=== PATIENT | male | born 1965 | race Caucasian/White ===

== ENCOUNTER 2020-01-25 18:12 | Inpatient (IN) | payer MEDICAID ==
[~2020-01-25] VITALS: Ht 182.9 cm; Wt 82.6 kg
[~2020-01-25 18:12] MED LIST: ALLO300T2 PO; BUDE0.253 INH
[2020-01-25] MEDS ORDERED: PANTOPRAZOLE 40 MG/10 ML VIAL INJ IV STA (18:25)
[2020-01-25] MEDS ORDERED: ONDANSETRON HCL 4 MG/2 ML VIAL IV ONE (18:30)
[2020-01-25] MEDS ORDERED: HYDROmorphone HCL 2 MG/ML VL IV ONE (18:30)
[2020-01-25 19:20] LABS: Basophils # (auto) 0 10 ^3/uL (0-0.2); Basophils % (auto) 0.2 % (0.0-2.0); Eosinophils # (auto) 0.1 10 ^3/uL (0-0.8); Eosinophils % (auto) 0.6 % (0.0-7.0); Hematocrit 43.4 % (41.0-53.0); Hemoglobin 15.4 g/dL (13.5-17.5); Lymphocytes # (auto) 0.6 10 ^3/uL (0.4-5.4); Lymphocytes % (auto) 4.7 % (10.0-50.0); Mean Corpuscular Hemoglobin 31.3 pg (28.0-32.0); Mean Corpuscular Hgb Conc. 35.5 g/dL (32.0-36.0); Mean Corpuscular Volume 88.3 fL (80.0-100.0); Monocytes # (auto) 0.6 10 ^3/uL (0-1.3); Monocytes % (auto) 4.9 % (0.0-12.0); Neutrophils # (auto) 10.6 10 ^3/uL (1.6-8.6); Neutrophils % (auto) 89.6 % (37.0-80.0); Nucleated Red Blood Cells % 0.1 %; Platelet Count (auto) 212 10^3/uL (140-450); Red Blood Cells 4.91 10^6/uL (4.5-5.90); Red Cell Distribution Width 13.6 % (11.8-14.3); White Blood Cell 11.9 10^3/uL (4.4-10.8)
[2020-01-25 19:33] LABS: INR 1.03 (0.9-1.15); Partial Thromboplastin Time 25.9 sec (23.0-31.2)
[2020-01-25 19:39] LABS: Potassium 3.2 mmol/L (3.5-5.1)
[2020-01-25 19:44] LABS: Albumin 4.6 g/dL (3.4-5.0); BUN/Creatinine Ratio 12.4; Bilirubin, Total 0.9 mg/dL (0.2-1.0); Calcium 9.6 mg/dL (8.5-10.1); Total Protein 8.3 g/dL (6.4-8.2)
[2020-01-25] MEDS ORDERED: IOHEXOL 300 MG/ML 100ML BOTTLE IJ ONE (19:48)
[2020-01-25] MEDS ORDERED: metroNIDAZOLE 500MG/100ML 100 ML IV ONE (20:45)
[2020-01-25 22:25] LABS: Urine Bacteria NONE SEEN /hpf (None Seen); Urine Blood 1+ /uL (Negative); Urine WBC 2 /hpf (0 - 3)
[2020-01-25 22:33] LABS: Urine Specific Gravity > 1.050 (1.001-1.035)
[2020-01-25] MEDS ORDERED: SODIUM CHLORIDE 0.9% 1,000 ML IV SCH (23:30)
[2020-01-26 00:04] LABS: Basophils # (auto) 0.1 10 ^3/uL (0-0.2); Basophils % (auto) 0.5 % (0.0-2.0); Eosinophils # (auto) 0.1 10 ^3/uL (0-0.8); Eosinophils % (auto) 0.6 % (0.0-7.0); Hematocrit 42.3 % (41.0-53.0); Lymphocytes # (auto) 1.1 10 ^3/uL (0.4-5.4); Lymphocytes % (auto) 9.5 % (10.0-50.0); Mean Corpuscular Hemoglobin 31.3 pg (28.0-32.0); Mean Corpuscular Hgb Conc. 35.4 g/dL (32.0-36.0); Mean Corpuscular Volume 88.7 fL (80.0-100.0); Monocytes # (auto) 0.9 10 ^3/uL (0-1.3); Monocytes % (auto) 7.6 % (0.0-12.0); Neutrophils # (auto) 9.8 10 ^3/uL (1.6-8.6); Neutrophils % (auto) 81.8 % (37.0-80.0); Nucleated Red Blood Cells % 0.1 %; Platelet Count (auto) 205 10^3/uL (140-450); Red Blood Cells 4.77 10^6/uL (4.5-5.90); Red Cell Distribution Width 13.6 % (11.8-14.3)
[2020-01-26] MEDS: ONDANSETRON HCL 4 MG/2 ML VIAL IV PRN ×4 (00:05→15:46)
[2020-01-26] MEDS: MORPHINE SULF INJ 2 MG/ML SYRINGE 1ML IV PRN ×5 (00:06→22:07)
[2020-01-26 00:21] LABS: Albumin 4.4 g/dL (3.4-5.0); BUN/Creatinine Ratio 11.9; Calcium 9.5 mg/dL (8.5-10.1); Magnesium 2.3 mg/dL (1.6-2.6); Potassium 3.2 mmol/L (3.5-5.1)
[2020-01-26 00:24] LABS: Bilirubin, Total 0.8 mg/dL (0.2-1.0); Phosphorus 1.4 mg/dL (2.5-4.90); Total Protein 7.9 g/dL (6.4-8.2)
--- NOTE | 2020-01-26 00:35 | NUR ---
ADMISSION NOTE PT ADMITTED TO ROOM 297-A IN STABLE COND. PT ORIENTED TO ROOM AND PROCEDURES AND POC DISCUSSED WITH PT. PT VERBALIZES UNDERSTANDING. BED IS LOW, WHEELS ARE LOCKED, AND CALL LIGHT IS WITH IN REACH.
[2020-01-26 00:45] VITALS: BP 147/80
--- NOTE | 2020-01-26 00:45 | NUR ---
PT REPORTS THAT HE HAS BEEN OUT OF HIS HOME MEDS FOR ABOUT 2WEEKS.
[2020-01-26 05:00] VITALS: BP 118/82
[2020-01-26] MEDS: metroNIDAZOLE 500MG/100ML 100 ML IV SCH ×3 (05:35→22:06)
--- NOTE | 2020-01-26 08:00 | NUR ---
OPENING SHIFT NOTE: PATIENT RESTING IN BED, AWAKE A/OX4. RESPIRATIONS EVEN AND UNLABORED. UPDATED ON PLAN OF CARE. CALL LIGHT WITHIN REACH, WILL CONTINUE TO MONITOR.
[2020-01-26 09:00] VITALS: BP 138/74
[2020-01-26] MEDS ORDERED: POTASSIUM CHLORIDE 40 MEQ, LIDOCAINE 1% (LOCAL ANESTH.) 4 ML in SODIUM CHL 0.9% 100 ML IV ONE (09:00)
--- NOTE | 2020-01-26 09:45 | NUR ---
MD MUHAMMAD ROUNDING.
--- NOTE | 2020-01-26 09:52 | NUR ---
STOOL SENT TO LAB: DIAMANTE RED LIQUID NOTED.
[2020-01-26] MEDS: MAGNESIUM SULFATE 1GM/100ML 100 ML IV SCH ×2 (09:54→15:45)
[2020-01-26] MEDS ORDERED: ENOXAPARIN SOD 40 MG/0.4 ML SYRINGE SC SCH (10:00)
[2020-01-26] MEDS: levoFLOXacin 500MG 100 ML IV SCH (11:20)
[2020-01-26 13:00] VITALS: BP 122/91
[2020-01-26] MEDS ORDERED: MAGNESIUM SULFATE 1GM/100ML 100 ML IV SCH (14:00)
--- NOTE | 2020-01-26 16:39 | NUR ---
MD HENSLEY ROUNDING.
[2020-01-26] MEDS: D5W/LACTATED RINGERS 1,000 ML IV SCH ×2 (16:48→18:49)
[2020-01-26 17:00] VITALS: BP 132/75
[2020-01-26 22:20] VITALS: BP 123/77
[2020-01-27] MEDS: ACETAMINOPHEN 325 MG TAB PO PRN ×2 (03:25→14:04)
[2020-01-27 05:02] VITALS: BP 145/87
[2020-01-27] MEDS: metroNIDAZOLE 500MG/100ML 100 ML IV SCH ×2 (06:03→14:42)
[2020-01-27] MEDS: D5W/LACTATED RINGERS 1,000 ML IV SCH ×2 (06:03→09:30)
[2020-01-27] MEDS: MORPHINE SULF INJ 2 MG/ML SYRINGE 1ML IV PRN ×2 (06:04→10:23)
[2020-01-27 06:32] LABS: Basophils # (auto) 0 10 ^3/uL (0-0.2); Basophils % (auto) 0.5 % (0.0-2.0); Eosinophils # (auto) 0.5 10 ^3/uL (0-0.8); Eosinophils % (auto) 5.3 % (0.0-7.0); Hematocrit 37.6 % (41.0-53.0); Hemoglobin 13.3 g/dL (13.5-17.5); Lymphocytes # (auto) 1.1 10 ^3/uL (0.4-5.4); Lymphocytes % (auto) 12.5 % (10.0-50.0); Mean Corpuscular Hemoglobin 31.4 pg (28.0-32.0); Mean Corpuscular Hgb Conc. 35.3 g/dL (32.0-36.0); Monocytes # (auto) 0.9 10 ^3/uL (0-1.3); Monocytes % (auto) 9.6 % (0.0-12.0); Neutrophils # (auto) 6.6 10 ^3/uL (1.6-8.6); Neutrophils % (auto) 72.1 % (37.0-80.0); Nucleated Red Blood Cells % 0.1 %; Platelet Count (auto) 162 10^3/uL (140-450); Red Blood Cells 4.23 10^6/uL (4.5-5.90); Red Cell Distribution Width 13.6 % (11.8-14.3); White Blood Cell 9.1 10^3/uL (4.4-10.8)
[2020-01-27 06:55] LABS: Calcium 8.6 mg/dL (8.5-10.1); Potassium 3.7 mmol/L (3.5-5.1)
[2020-01-27 06:58] LABS: Albumin 3.4 g/dL (3.4-5.0)
[2020-01-27 07:03] LABS: Bilirubin, Total 0.4 mg/dL (0.2-1.0); Total Protein 6.4 g/dL (6.4-8.2)
--- NOTE | 2020-01-27 07:39 | NUR ---
OPENING SHIFT NOTE: PATIENT RESTING IN BED, AWAKE A/OX4. RESPIRATIONS EVEN AND UNLABORED. UPDATED ON PLAN OF CARE. CALL LIGHT WITHIN REACH, WILL CONTINUE TO MONITOR.
[2020-01-27 08:20] LABS: INR 1.05 (0.9-1.15); Partial Thromboplastin Time 27.1 sec (23.0-31.2)
[2020-01-27 09:00] VITALS: BP 109/70
[2020-01-27] MEDS: levoFLOXacin 500MG 100 ML IV SCH (09:30)
[2020-01-27 13:00] VITALS: BP 104/71
--- NOTE | 2020-01-27 15:30 | NUR ---
MD HENSLEY ROUNDING.
[2020-01-27] MEDS ORDERED: LEVO-28 PO (15:32)
[2020-01-27] MEDS ORDERED: METR500T PO (15:32)
[2020-01-27] MEDS ORDERED: IBUP600T27 PO (15:32)
--- NOTE | 2020-01-27 16:59 | NUR ---
DISCHARGE: Discharge instructions given as ordered. Encourage to follow up with PMD as instructed. All questions and concerns addressed. Patient verbalized understanding. IV removed with catheter intact, dressing applied. Patient taken to private auto with all personal belongings, accompanied by staff and family member. No distress noted at time of departure.
== END 2020-01-27 17:00 | disposition home or self-care (01) | DRG 244 ==
LOC: EDUNIT# 18:12 → EDBD 18:12 → ER 18:12 → OVERFLOW 18:13 → WEST WING 23:54
PROVIDERS: ADMIT Internal Medicine; ATTEND Internal Medicine
DX: K57.32 Diverticulitis of large intestine without perforation or abscess without bleeding (principal); J45.909 Unspecified asthma, uncomplicated; K59.00 Constipation, unspecified; K62.5 Hemorrhage of anus and rectum; M10.9 Gout, unspecified; Z79.899 Other long term (current) drug therapy
CPT/HCPCS: 36415; 74177; 80053; 81001; 82150; 82270; 83690; 83735; 84100; 85025; 85610; 85730; 86850; 86900; 86901; 96365; 96366; 96375; C9113; G0378; J1956; J2001; J2405; J3490

== ENCOUNTER 2021-08-29 11:25 | Inpatient (IN) | payer MEDICAID ==
[~2021-08-29] VITALS: Ht 188 cm; Wt 76.0 kg
[~2021-08-29 11:25] MED LIST changes: +IBUP600T27 PO; +LEVO-28 PO; +METR500T PO
[2021-08-29] MEDS ORDERED: ONDANSETRON HCL 4 MG/2 ML VIAL IV ONE (11:45)
[2021-08-29] MEDS ORDERED: SODIUM CHLORIDE 0.9% 1,000 ML IVB ONE (11:45)
[2021-08-29] MEDS ORDERED: MORPHINE SULFATE 4 MG/ML SYR/VIAL IV ONE (11:45)
[2021-08-29] MEDS ORDERED: PANTOPRAZOLE 40 MG/10 ML VIAL INJ IV ONE (11:45)
[2021-08-29 12:49] LABS: Basophils # (auto) 0 10 ^3/uL (0-0.2); Basophils % (auto) 0.3 % (0.0-2.0); Eosinophils # (auto) 0.1 10 ^3/uL (0-0.8); Eosinophils % (auto) 0.6 % (0.0-7.0); Hematocrit 46.3 % (41.0-53.0); Hemoglobin 15.8 g/dL (13.5-17.5); Lymphocytes # (auto) 0.4 10 ^3/uL (0.4-5.4); Lymphocytes % (auto) 4.2 % (10.0-50.0); Mean Corpuscular Hemoglobin 30.5 pg (28.0-32.0); Mean Corpuscular Hgb Conc. 34.1 g/dL (32.0-36.0); Mean Corpuscular Volume 89.4 fL (80.0-100.0); Monocytes # (auto) 0.8 10 ^3/uL (0-1.3); Monocytes % (auto) 7.8 % (0.0-12.0); Neutrophils # (auto) 8.5 10 ^3/uL (1.6-8.6); Neutrophils % (auto) 87.1 % (37.0-80.0); Nucleated Red Blood Cells % 0.1 %; Red Blood Cells 5.18 10^6/uL (4.5-5.90); Red Cell Distribution Width 13.9 % (11.8-14.3); White Blood Cell 9.8 10^3/uL (4.4-10.8)
[2021-08-29 12:58] LABS: Albumin 3.5 g/dL (3.4-5.0); BUN/Creatinine Ratio 25.2; Calcium 9.1 mg/dL (8.5-10.1); Potassium 3.5 mmol/L (3.5-5.1)
[2021-08-29 13:07] LABS: INR 2.2 (0.9-1.15); Partial Thromboplastin Time 28.8 sec (23.6-33.0)
[2021-08-29] MEDS ORDERED: PANTOPRAZOLE 40mg/50ML NS AE 50 ML IV ONE (13:45)
[2021-08-29] MEDS ORDERED: CEFTRIAXONE SODIUM 2 GM in D5W 5% 50 ML IV ONE (13:45)
[2021-08-29] MEDS ORDERED: PANTOPRAZOLE 80 MG in SODIUM CHL 0.9% 100 ML IV ONE (13:45)
[2021-08-29] MEDS ORDERED: metroNIDAZOLE 500MG/100ML 100 ML IV ONE (13:45)
[2021-08-29 13:55] LABS: Bilirubin, Total 4.4 mg/dL (0.2-1.0); Total Protein 6.8 g/dL (6.4-8.2)
[2021-08-29] MEDS ORDERED: GASTROGRAFIN 120 ML SOL ONE (14:25)
[2021-08-29] MEDS ORDERED: VANCOMYCIN PER PHARMACY 0 MG IV SCH (17:45)
[2021-08-29 20:02] LABS: Acetaminophen < 2.0 ug/mL (10-30); Salicylate < 1.7 mg/dL (2.8-20.0)
[2021-08-29] MEDS: VANCOMYCIN 1GM/250ML 250 ML IV SCH (20:22)
[2021-08-29] MEDS: LACTATED RINGER'S 1,000 ML IV SCH (20:23)
[2021-08-29] MEDS ORDERED: ACETYLCYSTEINE IV ONE ×2 (21:00→22:00)
[2021-08-29] MEDS ORDERED: D5W 5% IV ONE ×2 (21:00→22:00)
[2021-08-29] MEDS ORDERED: ACETYLCYSTEINE PO FOR APAP TOX 200 MG/ML ML PO ONE (21:00)
[2021-08-29] MEDS ORDERED: MEROPENEM 1GM IVPB 100 ML IV SCH (22:00)
[2021-08-29] MEDS ORDERED: MORPHINE SULFATE INJECTION 2 MG/ML SYRG IV ONE (23:30)
[2021-08-29] MEDS: ONDANSETRON HCL 4 MG/2 ML VIAL IV PRN (23:43)
[2021-08-30] VITALS (13 sets, daily range): BP systolic 105–153; BP diastolic 60–83
[2021-08-30] MEDS: PIPERACILLIN-TAZOB 3.375GM 100 ML IV SCH ×4 (00:01→18:17)
[2021-08-30] MEDS ORDERED: ACETYLCYSTEINE PO FOR APAP TOX 200 MG/ML ML PO SCH (01:00)
[2021-08-30] MEDS: D5W 5% IV SCH ×2 (02:13→18:18)
[2021-08-30] MEDS: ACETYLCYSTEINE IV SCH ×2 (02:13→18:18)
[2021-08-30] MEDS: LACTATED RINGER'S 1,000 ML IV SCH ×2 (05:00→13:45)
[2021-08-30 05:48] LABS: Basophils # (auto) 0.1 10 ^3/uL (0-0.2); Basophils % (auto) 0.8 % (0.0-2.0); Eosinophils # (auto) 0.7 10 ^3/uL (0-0.8); Eosinophils % (auto) 10.2 % (0.0-7.0); Hematocrit 38.2 % (41.0-53.0); Hemoglobin 13.5 g/dL (13.5-17.5); Lymphocytes # (auto) 0.6 10 ^3/uL (0.4-5.4); Lymphocytes % (auto) 8.9 % (10.0-50.0); Mean Corpuscular Hemoglobin 31.4 pg (28.0-32.0); Mean Corpuscular Hgb Conc. 35.4 g/dL (32.0-36.0); Mean Corpuscular Volume 88.7 fL (80.0-100.0); Monocytes # (auto) 0.9 10 ^3/uL (0-1.3); Monocytes % (auto) 12.6 % (0.0-12.0); Neutrophils # (auto) 4.9 10 ^3/uL (1.6-8.6); Neutrophils % (auto) 67.5 % (37.0-80.0); Nucleated Red Blood Cells % 0.1 %; Red Blood Cells 4.31 10^6/uL (4.5-5.90); Red Cell Distribution Width 13.6 % (11.8-14.3); White Blood Cell 7.3 10^3/uL (4.4-10.8)
[2021-08-30 05:56] LABS: INR 1.82 (0.9-1.15)
[2021-08-30 06:08] LABS: Albumin 2.7 g/dL (3.4-5.0); BUN/Creatinine Ratio 27.3; Bilirubin, Total 3.6 mg/dL (0.2-1.0); Calcium 7.8 mg/dL (8.5-10.1)
[2021-08-30 06:17] LABS: Potassium 2.9 mmol/L (3.5-5.1)
[2021-08-30 06:19] LABS: Total Protein 5.4 g/dL (6.4-8.2)
[2021-08-30] MEDS: VANCOMYCIN 1GM/250ML 250 ML IV SCH ×2 (09:18→21:02)
[2021-08-30] MEDS: POTASSIUM CHL 20MEQ/100ML 100 ML IV SCH ×3 (09:19→14:53)
[2021-08-30] MEDS: ONDANSETRON HCL 4 MG/2 ML VIAL IV PRN (10:44)
[2021-08-30 17:07] LABS: Urine Bacteria NONE SEEN /hpf (None Seen); Urine Blood Negative /uL (Negative); Urine Specific Gravity 1.012 (1.001-1.035); Urine WBC 1 /hpf (0 - 3)
[2021-08-30 17:24] LABS: Alcohol, Urine < 3.0 mg/dL (0-10); Amphetamine Screen, Urine NEGATIVE (NEGATIVE); Barbiturate Scree,Urine NEGATIVE (NEGATIVE); Benzodiazephine Screen, Urine NEGATIVE (NEGATIVE); Cannabinoid Screen, Urine POSITIVE (NEGATIVE); Cocaine Screen, Urine NEGATIVE (NEGATIVE); Opiate Scree,Urine NEGATIVE (NEGATIVE); Phencyclidine Screen, Urine NEGATIVE (NEGATIVE)
[2021-08-30] MEDS ORDERED: LIDOCAINE 1% (LOCAL ANESTH.) PF 5ml SDV ID ONE (18:00)
[2021-08-30] MEDS ORDERED: TPN PER PHARMACY 0 ML IV SCH (18:45)
[2021-08-30] MEDS: HYDROmorphone HCL 2 MG/ML VL/or syr IV PRN (19:25)
[2021-08-30] MEDS ORDERED: AMINO ACID INFUSION IN D10W 1,000 ML IV NR (20:00)
[2021-08-30] MEDS: PANTOPRAZOLE 40 MG/10 ML VIAL INJ IV SCH (23:42)
[2021-08-30] MEDS: SODIUM CHLOR 0.9% PF (SALINE LOCK) 10ML VIAL/SYR IV SCH (23:42)
[2021-08-31] VITALS: BP 106/65
[2021-08-31] MEDS ORDERED: DEXTROSE (50%) 50ML SYRG IV SCH
[2021-08-31 01:00] VITALS: BP 127/67
[2021-08-31 02:00] VITALS: BP 122/73
[2021-08-31 03:00] VITALS: BP 113/77
[2021-08-31] MEDS: LACTATED RINGER'S 1,000 ML IV SCH ×4 (03:04→20:36)
[2021-08-31] MEDS: ACCU-CHEK COMFORT CURVE STRIP VI SCH ×4 (03:05→18:00)
[2021-08-31] MEDS: PIPERACILLIN-TAZOB 3.375GM 100 ML IV SCH ×4 (03:05→18:49)
[2021-08-31] MEDS: InsuLIN REG 1unit/0.01ml Soln (100units/ml) SC SCH ×4 (06:00→18:00)
[2021-08-31 06:04] LABS: Hematocrit 37.2 % (41.0-53.0); Mean Corpuscular Hemoglobin 31.2 pg (28.0-32.0); Mean Corpuscular Volume 89.2 fL (80.0-100.0); Red Blood Cells 4.17 10^6/uL (4.5-5.90); Red Cell Distribution Width 14.1 % (11.8-14.3); White Blood Cell 5.5 10^3/uL (4.4-10.8)
[2021-08-31] MEDS: HYDROmorphone HCL 2 MG/ML VL/or syr IV PRN ×3 (06:07→19:58)
[2021-08-31 06:14] LABS: Band Neutrophils % (manual) 0; Basophils % (manual) 0 (0.0-2.0); Blast Cells 0; Metamyelocytes % 0; Myelocytes % 0; Promyelocytes % 0; Reactive Lymphocytes 0
[2021-08-31 06:22] LABS: Albumin 2.7 g/dL (3.4-5.0); Calcium 8.1 mg/dL (8.5-10.1)
[2021-08-31 06:30] LABS: BUN/Creatinine Ratio 14.9; Bilirubin, Total 2.1 mg/dL (0.2-1.0); Total Protein 5.6 g/dL (6.4-8.2)
[2021-08-31] MEDS: POTASSIUM CHL 20MEQ/100ML 100 ML IV SCH ×3 (07:15→11:15)
[2021-08-31] MEDS: VANCOMYCIN 1GM/250ML 250 ML IV SCH ×2 (07:59→20:35)
[2021-08-31 08:29] LABS: Eosinophils % (manual) 7 (0-7); Lymphocytes % (manual) 25 (10.0-50.0); Monocytes % (manual) 9 (0-12)
[2021-08-31] MEDS: SODIUM CHLOR 0.9% PF (SALINE LOCK) 10ML VIAL/SYR IV SCH ×2 (10:00→22:36)
[2021-08-31] MEDS: D5W 5% IV SCH (10:00)
[2021-08-31] MEDS: ACETYLCYSTEINE IV SCH (10:00)
[2021-08-31] MEDS: PANTOPRAZOLE 40 MG/10 ML VIAL INJ IV SCH ×2 (10:40→22:36)
[2021-08-31] MEDS: ONDANSETRON HCL 4 MG/2 ML VIAL IV PRN (10:50)
[2021-08-31] MEDS ORDERED: POTASSIUM PHOSPHATE 22 MEQ in SODIUM CHL 0.9% 100 ML IV ONE (14:00)
[2021-08-31] MEDS ORDERED: TPN PER PHARMACY IV NR ×8 (20:00)
[2021-08-31 22:00] VITALS: BP 126/72
[2021-09-01] MEDS: ACCU-CHEK COMFORT CURVE STRIP VI SCH ×4 (00:37→17:53)
[2021-09-01] MEDS: PIPERACILLIN-TAZOB 3.375GM 100 ML IV SCH ×4 (00:37→17:53)
[2021-09-01] MEDS: D5W 5% IV SCH ×2 (00:38→17:52)
[2021-09-01] MEDS: ACETYLCYSTEINE IV SCH ×2 (00:38→17:52)
[2021-09-01 05:00] VITALS: BP 122/73
[2021-09-01] MEDS: InsuLIN REG 1unit/0.01ml Soln (100units/ml) SC SCH ×4 (06:00→17:53)
[2021-09-01 06:08] LABS: Hemoglobin 12.9 g/dL (13.5-17.5); Mean Corpuscular Hemoglobin 31.6 pg (28.0-32.0); Mean Corpuscular Volume 90.4 fL (80.0-100.0); Red Blood Cells 4.09 10^6/uL (4.5-5.90); Red Cell Distribution Width 14.2 % (11.8-14.3); White Blood Cell 5.5 10^3/uL (4.4-10.8)
[2021-09-01 06:17] LABS: INR 1.32 (0.9-1.15)
[2021-09-01] MEDS: HYDROmorphone HCL 2 MG/ML VL/or syr IV PRN ×3 (06:18→22:25)
[2021-09-01 06:21] LABS: Albumin 2.9 g/dL (3.4-5.0); Calcium 8.2 mg/dL (8.5-10.1); Magnesium 2.4 mg/dL (1.6-2.6); Potassium 3.4 mmol/L (3.5-5.1)
[2021-09-01 06:23] LABS: Basophils % (manual) 0 (0.0-2.0); Blast Cells 0; Metamyelocytes % 0; Myelocytes % 0; Promyelocytes % 0; Reactive Lymphocytes 0
[2021-09-01 06:29] LABS: Bilirubin, Total 1.6 mg/dL (0.2-1.0); Phosphorus 3.3 mg/dL (2.5-4.90); Total Protein 5.8 g/dL (6.4-8.2)
[2021-09-01] MEDS: VANCOMYCIN 1GM/250ML 250 ML IV SCH (07:37)
[2021-09-01 08:31] LABS: Band Neutrophils % (manual) 1; Lymphocytes % (manual) 16 (10.0-50.0); Monocytes % (manual) 16 (0-12)
[2021-09-01 08:32] LABS: Eosinophils % (manual) 14 (0-7)
[2021-09-01] MEDS ORDERED: POTASSIUM CHL 20MEQ/100ML 100 ML IV ONE (08:45)
[2021-09-01 09:00] VITALS: BP 123/75
[2021-09-01] MEDS: PANTOPRAZOLE 40 MG/10 ML VIAL INJ IV SCH ×2 (10:00→22:25)
[2021-09-01] MEDS: SODIUM CHLOR 0.9% PF (SALINE LOCK) 10ML VIAL/SYR IV SCH ×2 (10:08→22:25)
[2021-09-01] MEDS: LACTATED RINGER'S 1,000 ML IV SCH (12:40)
[2021-09-01 13:41] LABS: BUN/Creatinine Ratio 10.5
[2021-09-01] MEDS ORDERED: TPN PER PHARMACY IV NR ×8 (20:00)
[2021-09-01 22:00] VITALS: BP 104/60
[2021-09-02] MEDS: PIPERACILLIN-TAZOB 3.375GM 100 ML IV SCH ×2 (00:15→05:58)
[2021-09-02 04:52] VITALS: BP 94/61
[2021-09-02] MEDS: LACTATED RINGER'S 1,000 ML IV SCH (05:06)
[2021-09-02] MEDS: InsuLIN REG 1unit/0.01ml Soln (100units/ml) SC SCH ×2 (05:38)
[2021-09-02] MEDS: ACCU-CHEK COMFORT CURVE STRIP VI SCH ×2 (05:39)
[2021-09-02] MEDS: HYDROmorphone HCL 2 MG/ML VL/or syr IV PRN ×2 (05:59→12:30)
[2021-09-02 06:59] LABS: Potassium 3.9 mmol/L (3.5-5.1)
[2021-09-02 07:00] LABS: Hematocrit 39.3 % (41.0-53.0); Hemoglobin 13.1 g/dL (13.5-17.5); Mean Corpuscular Hemoglobin 30.5 pg (28.0-32.0); Mean Corpuscular Hgb Conc. 33.3 g/dL (32.0-36.0); Mean Corpuscular Volume 91.6 fL (80.0-100.0); Red Blood Cells 4.29 10^6/uL (4.5-5.90); Red Cell Distribution Width 14.4 % (11.8-14.3); White Blood Cell 7.5 10^3/uL (4.4-10.8)
[2021-09-02 07:09] LABS: Basophils % (manual) 0 (0.0-2.0); Blast Cells 0; Eosinophils % (manual) 0 (0-7); Metamyelocytes % 0; Myelocytes % 0; Promyelocytes % 0; Reactive Lymphocytes 0
[2021-09-02 07:13] LABS: Albumin 2.9 g/dL (3.4-5.0); BUN/Creatinine Ratio 9.8; Calcium 8.3 mg/dL (8.5-10.1); Magnesium 2.5 mg/dL (1.6-2.6); Phosphorus 3.4 mg/dL (2.5-4.90); Total Protein 5.8 g/dL (6.4-8.2)
[2021-09-02 08:12] LABS: Band Neutrophils % (manual) 9; Lymphocytes % (manual) 20 (10.0-50.0); Monocytes % (manual) 8 (0-12)
[2021-09-02 09:00] VITALS: BP 114/81
[2021-09-02] MEDS: D5W 5% IV SCH (09:30)
[2021-09-02] MEDS: SODIUM CHLOR 0.9% PF (SALINE LOCK) 10ML VIAL/SYR IV SCH (09:30)
[2021-09-02] MEDS: ACETYLCYSTEINE IV SCH (09:30)
[2021-09-02] MEDS: PANTOPRAZOLE 40 MG/10 ML VIAL INJ IV SCH (09:30)
[2021-09-02 12:30] VITALS: BP 114/81
== END 2021-09-02 14:04 | disposition home or self-care (01) | DRG 812 ==
LOC: ER 11:25 → EDBD 11:25 → OVERFLOW 17:33 → DOU IN ICU 23:37 → TELE-EAST 08-31 18:12
PROVIDERS: ADMIT Registered Nurse; ATTEND Internal Medicine Pulmonary Disease
PROC: 0D9670Z Drainage of Stomach with Drainage Device, Via Natural or Artificial Opening (ICD-10-PCS; principal; 2021-08-29)
DX: T39.011A Poisoning by aspirin, accidental (unintentional), initial encounter (principal); N17.0 Acute kidney failure with tubular necrosis; S36.119A Unspecified injury of liver, initial encounter; K57.81 Diverticulitis of intestine, part unspecified, with perforation and abscess with bleeding; K57.92 Diverticulitis of intestine, part unspecified, without perforation or abscess without bleeding; F10.10 Alcohol abuse, uncomplicated; Z20.822 Contact with and (suspected) exposure to COVID-19; X58.XXXA Exposure to other specified factors, initial encounter; M10.9 Gout, unspecified; Y92.89 Other specified places as the place of occurrence of the external cause; Y93.89 Activity, other specified; Y99.8 Other external cause status; T39.1X1A Poisoning by 4-Aminophenol derivatives, accidental (unintentional), initial encounter
CPT/HCPCS: 36415; 36569; 71045; 74018; 74176; 74248; 76705; 80053; 80202; 80307; 80329; 81001; 82150; 82270; 82962; 83690; 83735; 84100; 84132; 84478; 85007; 85025; 85027; 85610; 85730; 86850; 86900; 86901; 87081; 93005; 96361; 96365; 96366; 96367; 96375; 99291; C9113; G0378; J0696; J2405; J2543; J3480; J3490; J7060

== ENCOUNTER 2021-11-16 11:40 | Emergency (ER) | payer MEDICAID ==
[~2021-11-16 11:40] MED LIST changes: -LEVO-28 PO; -METR500T PO
[2021-11-16] MEDS: cefTRIAXone 1GM/50ML D5W 50 ML IV ONE (13:35)
[2021-11-16] MEDS: MORPHINE SULFATE 4 MG/ML SYR/VIAL IV ONE (15:09)
[2021-11-16] MEDS: CLINDAMYCIN 600MG IV 50 ML IV ONE (15:09)
[2021-11-16] MEDS: ONDANSETRON HCL 4 MG/2 ML VIAL IV ONE (15:10)
[2021-11-16 16:35] VITALS: BP 114/70
== END 2021-11-16 16:42 | disposition home or self-care (01) ==
LOC: EDBD 11:40 → ER 11:40
DX: L03.313 Cellulitis of chest wall (principal); R41.82 Altered mental status, unspecified
CPT/HCPCS: 71045; 71260; 96365; 96366; 96368; 96375; 99285; J0696; J2270; J2405; J3490

== ENCOUNTER 2022-05-27 23:22 | Inpatient (IN) | payer MEDICAID ==
[~2022-05-27] VITALS: Ht 182.9 cm; Wt 70.2 kg
[2022-05-28] VITALS (64 sets, daily range): BP systolic 103–154; BP diastolic 74–97
[2022-05-28] MEDS ORDERED: ETOMIDATE (2MG/ML) 20ML VIAL IV ONE ×2 (00:35→02:00)
[2022-05-28] MEDS ORDERED: ROCURONIUM 10MG/ML 10ML VIAL IV ONE ×2 (00:37→02:00)
[2022-05-28] MEDS ORDERED: MIDAZOLAM DRIP 50 mg/50mL 50 ML IV ONE (00:38)
[2022-05-28] MEDS ORDERED: PROPOFOL 100 ML IV ONE (00:53)
[2022-05-28] MEDS: PROPOFOL 100 ML IV SCH ×2 (01:00→23:46)
[2022-05-28] MEDS: MIDAZOLAM DRIP 50 mg/50mL 50 ML IV SCH ×4 (01:05→19:42)
[2022-05-28 01:38] LABS: Basophils # (auto) 0 10 ^3/uL (0-0.2); Basophils % (auto) 0.4 % (0.0-2.0); Eosinophils # (auto) 0 10 ^3/uL (0-0.8); Eosinophils % (auto) 0.1 % (0.0-7.0); Hematocrit 44.9 % (41.0-53.0); Lymphocytes # (auto) 0.4 10 ^3/uL (0.4-5.4); Lymphocytes % (auto) 3.8 % (10.0-50.0); Mean Corpuscular Hemoglobin 29.4 pg (28.0-32.0); Mean Corpuscular Hgb Conc. 33.4 g/dL (32.0-36.0); Mean Corpuscular Volume 88.3 fL (80.0-100.0); Monocytes # (auto) 0.9 10 ^3/uL (0-1.3); Neutrophils # (auto) 9.1 10 ^3/uL (1.6-8.6); Neutrophils % (auto) 86.7 % (37.0-80.0); Red Blood Cells 5.09 10^6/uL (4.5-5.90); Red Cell Distribution Width 13.6 % (11.8-14.3); White Blood Cell 10.4 10^3/uL (4.4-10.8)
[2022-05-28 01:52] LABS: Albumin 4.2 g/dL (3.4-5.0); Calcium 9.6 mg/dL (8.5-10.1); Potassium 3.3 mmol/L (3.5-5.1)
[2022-05-28 01:55] LABS: Bilirubin, Total 1.1 mg/dL (0.2-1.0); Total Protein 7.8 g/dL (6.4-8.2)
[2022-05-28] MEDS ORDERED: MIDAZOLAM HCL 5 MG/ML-1ML VIAL IV ONE (02:00)
[2022-05-28 02:06] LABS: Urine Bacteria NONE SEEN /hpf (None Seen); Urine Blood Negative /uL (Negative); Urine Hyaline Cast FEW /lpf (0 - 2); Urine Mucus FEW (None Seen); Urine Specific Gravity 1.027 (1.001-1.035); Urine WBC 2 /hpf (0 - 3)
[2022-05-28 03:58] LABS: Alcohol, Urine < 3.0 mg/dL (0-10); Barbiturate Scree,Urine NEGATIVE (NEGATIVE); Phencyclidine Screen, Urine NEGATIVE (NEGATIVE)
[2022-05-28 03:59] LABS: Amphetamine Screen, Urine POSITIVE (NEGATIVE); Benzodiazephine Screen, Urine NEGATIVE (NEGATIVE); Cannabinoid Screen, Urine NEGATIVE (NEGATIVE); Cocaine Screen, Urine NEGATIVE (NEGATIVE)
[2022-05-28 04:06] LABS: Opiate Scree,Urine NEGATIVE (NEGATIVE)
[2022-05-28] MEDS ORDERED: ACETAMINOPHEN 325 MG TAB PO PRN (07:30)
[2022-05-28] MEDS ORDERED: D5W/SOD CHLO 0.9% 1,000 ML IV SCH (07:30)
[2022-05-28] MEDS ORDERED: ALBUTEROL SULF 2.5 MG/0.5ML(0.5%) NEB SOLN NEB PRN ×2 (07:30→13:30)
[2022-05-28] MEDS ORDERED: MORPHINE SULFATE INJ 2 MG/ml SYRG IV PRN (07:30)
[2022-05-28] MEDS ORDERED: POTASSIUM CHL 20MEQ/100ML 100 ML IV ONE (07:30)
[2022-05-28] MEDS ORDERED: ONDANSETRON HCL 4 MG/2 ML VIAL IV PRN (07:30)
[2022-05-28] MEDS ORDERED: NITROGLYCERIN 0.4 MG SL TAB SL PRN (07:30)
[2022-05-28] MEDS: D5W/SOD CHLO 0.9% 1,000 ML IV SCH ×2 (13:30→22:54)
[2022-05-28] MEDS ORDERED: IPRATROPIUM BROM 0.5 MG/2.5ML INH SOL NEB PRN (13:30)
[2022-05-28] MEDS: NOREPINEPHRINE 8 MG/250ML KIT 250 ML IV SCH (13:30)
[2022-05-28] MEDS: PANTOPRAZOLE 40 MG/10 ML VIAL INJ IV SCH (14:08)
[2022-05-28] MEDS: ENOXAPARIN SOD 40 MG/0.4 ML SYRINGE SC SCH (14:08)
[2022-05-29] VITALS (90 sets, daily range): BP systolic 85–157; BP diastolic 56–108
[2022-05-29] MEDS: MIDAZOLAM DRIP 50 mg/50mL 50 ML IV SCH (03:32)
[2022-05-29 03:57] LABS: Albumin 3.8 g/dL (3.4-5.0); Calcium 8.5 mg/dL (8.5-10.1); Potassium 3.4 mmol/L (3.5-5.1)
[2022-05-29 03:58] LABS: Basophils # (auto) 0 10 ^3/uL (0-0.2); Basophils % (auto) 0.5 % (0.0-2.0); Eosinophils # (auto) 0.3 10 ^3/uL (0-0.8); Eosinophils % (auto) 2.6 % (0.0-7.0); Hematocrit 43.1 % (41.0-53.0); Hemoglobin 14.5 g/dL (13.5-17.5); Lymphocytes # (auto) 1.1 10 ^3/uL (0.4-5.4); Mean Corpuscular Hgb Conc. 33.6 g/dL (32.0-36.0); Mean Corpuscular Volume 89.2 fL (80.0-100.0); Monocytes # (auto) 1.3 10 ^3/uL (0-1.3); Monocytes % (auto) 13.2 % (0.0-12.0); Neutrophils # (auto) 6.9 10 ^3/uL (1.6-8.6); Neutrophils % (auto) 72.7 % (37.0-80.0); Nucleated Red Blood Cells % 0.2 %; Red Blood Cells 4.83 10^6/uL (4.5-5.90); Red Cell Distribution Width 14.1 % (11.8-14.3); White Blood Cell 9.5 10^3/uL (4.4-10.8)
[2022-05-29 04:00] LABS: BUN/Creatinine Ratio 26.1; Bilirubin, Total 0.7 mg/dL (0.2-1.0); Total Protein 6.9 g/dL (6.4-8.2)
[2022-05-29] MEDS: ENOXAPARIN SOD 40 MG/0.4 ML SYRINGE SC SCH (09:30)
[2022-05-29] MEDS: PANTOPRAZOLE 40 MG/10 ML VIAL INJ IV SCH (09:30)
[2022-05-29] MEDS ORDERED: POTASSIUM EFFERVESENT TAB 25 MEQ PO ONE (10:15)
[2022-05-29] MEDS: POTASSIUM CHL 20MEQ/100ML 100 ML IV SCH ×2 (11:42→12:57)
[2022-05-29] MEDS: NOREPINEPHRINE 8 MG/250ML KIT 250 ML IV SCH (13:30)
[2022-05-29] MEDS: D5W/SOD CHLO 0.9% 1,000 ML IV SCH (16:17)
[2022-05-29] MEDS ORDERED: LORazepam 2MG/ML-1ML VIAL IV PRN (17:00)
[2022-05-29] MEDS ORDERED: HALOPERIDOL LACTATE 5 MG/ML INJ VIAL ONE (17:28)
[2022-05-29] MEDS ORDERED: HALOPERIDOL LACTATE 5 MG/ML INJ VIAL IV ONE (17:30)
[2022-05-29] MEDS ORDERED: HALOPERIDOL LACTATE 5 MG/ML INJ VIAL IM ONE (20:30)
[2022-05-30] MEDS: D5W/SOD CHLO 0.9% 1,000 ML IV SCH ×2 (01:32→06:05)
[2022-05-30] MEDS: PROPOFOL 100 ML IV SCH (02:00)
[2022-05-30 05:00] VITALS: BP 149/88
[2022-05-30 06:00] VITALS: BP 148/80
[2022-05-30 07:00] VITALS: BP 153/85
[2022-05-30 08:00] VITALS: BP 152/89
[2022-05-30] MEDS: ENOXAPARIN SOD 40 MG/0.4 ML SYRINGE SC SCH (09:31)
[2022-05-30] MEDS: PANTOPRAZOLE 40 MG/10 ML VIAL INJ IV SCH (09:31)
[2022-05-30 12:45] VITALS: BP 152/89
[2022-06-02] MEDS ORDERED: MIDAZOLAM DRIP 50 mg/50mL 50 ML IV SCH (07:30)
== END 2022-05-30 12:45 | disposition left against medical advice (07) | DRG 133 ==
LOC: EDBD 23:22 → ER 23:22 → OVERFLOW 05-28 07:20 → ICU WEST 05-28 10:08
PROVIDERS: ADMIT Nurse Practitioner; ATTEND Nurse Practitioner Acute Care
PROC: 5A1945Z Respiratory Ventilation, 24-96 Consecutive Hours (ICD-10-PCS; principal; 2022-05-28)
PROC: 0BH17EZ Insertion of Endotracheal Airway into Trachea, Via Natural or Artificial Opening (ICD-10-PCS; 2022-05-28)
PROC: 02HV33Z Insertion of Infusion Device into Superior Vena Cava, Percutaneous Approach (ICD-10-PCS; 2022-05-28)
PROC: B548ZZA Ultrasonography of Superior Vena Cava, Guidance (ICD-10-PCS; 2022-05-28)
DX: J96.01 Acute respiratory failure with hypoxia (principal); G92.8 Other toxic encephalopathy; N17.9 Acute kidney failure, unspecified; J81.1 Chronic pulmonary edema; E86.0 Dehydration; E87.6 Hypokalemia; R79.89 Other specified abnormal findings of blood chemistry; Z20.822 Contact with and (suspected) exposure to COVID-19; F15.10 Other stimulant abuse, uncomplicated; Z53.29 Procedure and treatment not carried out because of patient's decision for other reasons; F10.129 Alcohol abuse with intoxication, unspecified; Z71.51 Drug abuse counseling and surveillance of drug abuser
CPT/HCPCS: 36415; 36556; 36600; 70450; 71045; 71250; 72125; 74176; 80053; 80307; 80320; 81001; 82805; 85025; 87070; 87081; 87205; 87426; 94002; 94003; 96365; 96366; C9113; G0378; J2250; J2704; J3480; J7042; J7060

== ENCOUNTER 2023-05-20 09:57 | Inpatient (IN) | payer MEDICAID ==
[~2023-05-20] VITALS: Ht 175.3 cm; Wt 99.0 kg
[2023-05-20] VITALS (8 sets, daily range): BP systolic 122–140; BP diastolic 88–97; PULSE 85–111; RESP 8–26; TEMP 96.8; O2SAT 94–99
[~2023-05-20 09:57] MED LIST changes: +IBUP-1454 PO; -IBUP600T27 PO
[2023-05-20] MEDS ORDERED: NALOXONE HCL 1MG/ML 2ML SYRINGE IV ONE (10:00)
[2023-05-20] MEDS ORDERED: ETOMIDATE (2MG/ML) 20ML VIAL IV ONE (10:15)
[2023-05-20] MEDS ORDERED: SUCCINYLCHOLINE CHLORIDE 20 MG/ML 10ML VIAL IV ONE (10:15)
[2023-05-20] MEDS ORDERED: SODIUM CHLORIDE 0.9% 1,000 ML IVB ONE (10:15)
[2023-05-20] MEDS ORDERED: MIDAZOLAM DRIP 50 mg/50mL 50 ML IV ONE (10:17)
[2023-05-20] MEDS: MIDAZOLAM DRIP 50 mg/50mL 50 ML IV SCH ×2 (10:25→20:28)
[2023-05-20 10:44] LABS: Basophils # (auto) 0 10 ^3/uL (0-0.2); Basophils % (auto) 0.1 % (0.0-2.0); Eosinophils # (auto) 0 10 ^3/uL (0-0.8); Hematocrit 48.5 % (41.0-53.0); Hemoglobin 16.6 g/dL (13.5-17.5); Lymphocytes # (auto) 0.8 10 ^3/uL (0.4-5.4); Lymphocytes % (auto) 7.6 % (10.0-50.0); Mean Corpuscular Hemoglobin 30.4 pg (28.0-32.0); Mean Corpuscular Hgb Conc. 34.2 g/dL (32.0-36.0); Mean Corpuscular Volume 88.9 fL (80.0-100.0); Monocytes # (auto) 0.2 10 ^3/uL (0-1.3); Neutrophils # (auto) 9.5 10 ^3/uL (1.6-8.6); Neutrophils % (auto) 90.3 % (37.0-80.0); Nucleated Red Blood Cells % 0.2 %; Red Blood Cells 5.46 10^6/uL (4.5-5.90); Red Cell Distribution Width 13.8 % (11.8-14.3); White Blood Cell 10.5 10^3/uL (4.4-10.8)
[2023-05-20] MEDS ORDERED: cefTRIAXone 1GM/50ML D5W 50 ML IV ONE (10:45)
[2023-05-20] MEDS ORDERED: PROPOFOL 100 ML IV ONE (10:47)
[2023-05-20] MEDS: MAGNESIUM SULFATE 1GM/100ML 100 ML IV SCH ×2 (10:50→12:03)
[2023-05-20 10:51] LABS: Chloride 105 mmol/L (98-107); Potassium 3.5 mmol/L (3.5-5.1); Sodium 141 mmol/L (136-145)
[2023-05-20 10:53] LABS: Anion Gap 16 (5-15); Carbon Dioxide 20 mmol/L (20-30)
[2023-05-20 10:54] LABS: Calcium 9.6 mg/dL (8.7-10.4)
[2023-05-20 10:58] LABS: Glucose 157 mg/dL (74-106)
[2023-05-20 10:59] LABS: BUN/Creatinine Ratio 15.7 (10.0-20.0); Blood Urea Nitrogen 17 mg/dL (9-23); Magnesium 2.3 mg/dL (1.6-2.6)
[2023-05-20 11:07] LABS: Salicylate < 3.0 mg/dL (2.8-20.0)
[2023-05-20 11:13] LABS: Lactic Acid w/Reflex 4.1 mmol/L (0.4-2.0)
[2023-05-20] MEDS: PROPOFOL 100 ML IV SCH (11:20)
[2023-05-20 11:33] LABS: Base Excess -6.3 mmol/L (-2.0-2.0)
[2023-05-20 11:39] LABS: Amphetamine Screen, Urine Neg (NEGATIVE); Benzodiazephine Screen, Urine Neg (NEGATIVE)
[2023-05-20 11:40] LABS: Barbiturate Scree,Urine Neg (NEGATIVE); Cannabinoid Screen, Urine Neg (NEGATIVE); Cocaine Screen, Urine Neg (NEGATIVE); Opiate Scree,Urine Neg (NEGATIVE); Phencyclidine Screen, Urine Neg (NEGATIVE)
[2023-05-20 13:53] LABS: Urine Epithelial Cast None Seen /hpf (<5)
[2023-05-20] MEDS ORDERED: DEXTROSE (50%) 50ML SYRG IV PRN (14:00)
[2023-05-20] MEDS ORDERED: IPRATROPIUM BROM 0.5 MG/2.5ML INH SOL NEB PRN (14:00)
[2023-05-20] MEDS ORDERED: ACETAMINOPHEN 325 MG TAB PO PRN (14:00)
[2023-05-20] MEDS ORDERED: ONDANSETRON HCL 4 MG/2 ML VIAL IV PRN (14:00)
[2023-05-20] MEDS ORDERED: DOCUSATE SOD 100 MG CAP PO PRN (14:00)
[2023-05-20] MEDS ORDERED: ALBUTEROL SULF 2.5 MG/0.5ML(0.5%) NEB SOLN NEB PRN (14:00)
[2023-05-20 14:38] LABS: Urine Bacteria NONE SEEN /hpf (None Seen); Urine Blood 2+ /uL (Negative); Urine Clarity CLOUDY (Clear); Urine Color Yellow (Yellow); Urine Protein, UAD 2+ (Negative); Urine Specific Gravity 1.028 (1.001-1.035); Urine Urobilinogen Normal (Negative); Urine WBC 46 /hpf (0 - 3); Urine pH 5.5 (5.0-8.0)
[2023-05-20] MEDS: SOD CHL 0.45% 1,000 ML IV SCH (15:03)
[2023-05-20 17:14] LABS: Chloride 106 mmol/L (98-107); Potassium 3.7 mmol/L (3.5-5.1); Sodium 143 mmol/L (136-145)
[2023-05-20 17:15] LABS: Anion Gap 13 (5-15); Calcium 9.3 mg/dL (8.5-10.1); Carbon Dioxide 24 mmol/L (20-30)
[2023-05-20 17:20] LABS: BUN/Creatinine Ratio 17.7 (10.0-20.0); Blood Urea Nitrogen 17 mg/dL (9-23); Glucose 112 mg/dL (74-106)
[2023-05-20] MEDS: InsuLIN REG 1unit/0.01ml Soln (100units/ml) SC SCH (18:00)
[2023-05-20] MEDS: ACCU-CHEK COMFORT CURVE STRIP VI SCH (18:02)
[2023-05-20] MEDS ORDERED: PANTOPRAZOLE 40 MG/10 ML VIAL INJ IV ONE (18:30)
[2023-05-20] MEDS ORDERED: POTASSIUM EFFERVESENT TAB 25 MEQ PO ONE (18:30)
[2023-05-20 18:46] LABS: Hematocrit 52.3 % (41.0-53.0); Hemoglobin 17.5 g/dL (13.5-17.5)
[2023-05-21] VITALS (14 sets, daily range): BP systolic 116–139; BP diastolic 68–93; PULSE 75–95; RESP 17–24; O2SAT 96–100
[2023-05-21] MEDS: ACCU-CHEK COMFORT CURVE STRIP VI SCH ×4 (00:10→18:09)
[2023-05-21] MEDS: InsuLIN REG 1unit/0.01ml Soln (100units/ml) SC SCH ×4 (00:13→18:00)
[2023-05-21] MEDS: MIDAZOLAM DRIP 50 mg/50mL 50 ML IV SCH ×5 (00:29→23:00)
[2023-05-21 00:53] LABS: Anion Gap 9 (5-15); Carbon Dioxide 25 mmol/L (20-30); Chloride 107 mmol/L (98-107); Potassium 4.6 mmol/L (3.5-5.1); Sodium 141 mmol/L (136-145)
[2023-05-21 00:54] LABS: Calcium 8.8 mg/dL (8.7-10.4)
[2023-05-21 00:59] LABS: BUN/Creatinine Ratio 13.9 (10.0-20.0); Blood Urea Nitrogen 17 mg/dL (9-23); Glucose 137 mg/dL (74-106)
[2023-05-21] MEDS: SOD CHL 0.45% 1,000 ML IV SCH ×2 (05:40→16:40)
[2023-05-21 06:42] LABS: Basophils # (auto) 0 10 ^3/uL (0-0.2); Basophils % (auto) 0.3 % (0.0-2.0); Eosinophils # (auto) 0 10 ^3/uL (0-0.8); Eosinophils % (auto) 0.1 % (0.0-7.0); Hematocrit 47.9 % (41.0-53.0); Hemoglobin 16.1 g/dL (13.5-17.5); Lymphocytes % (auto) 6.3 % (10.0-50.0); Mean Corpuscular Hemoglobin 29.7 pg (28.0-32.0); Mean Corpuscular Hgb Conc. 33.6 g/dL (32.0-36.0); Mean Corpuscular Volume 88.2 fL (80.0-100.0); Monocytes # (auto) 1.3 10 ^3/uL (0-1.3); Neutrophils # (auto) 14.3 10 ^3/uL (1.6-8.6); Neutrophils % (auto) 85.3 % (37.0-80.0); Nucleated Red Blood Cells % 0.2 %; Red Blood Cells 5.43 10^6/uL (4.5-5.90); White Blood Cell 16.7 10^3/uL (4.4-10.8)
[2023-05-21 06:45] LABS: Alanine Aminotransferase 63 U/L (7-40); Albumin 4.5 g/dL (3.2-4.8); Alkaline Phosphatase 67 U/L (46-116); Anion Gap 9 (5-15); Aspartate Aminotransferase 141 U/L (13-40); BUN/Creatinine Ratio 13.9 (10.0-20.0); Bilirubin, Total 0.9 mg/dL (0.2-1.0); Blood Urea Nitrogen 17 mg/dL (9-23); Carbon Dioxide 25 mmol/L (20-30); Chloride 107 mmol/L (98-107); Glucose 124 mg/dL (74-106); Magnesium 2.7 mg/dL (1.6-2.6); Potassium 4.1 mmol/L (3.5-5.1); Sodium 141 mmol/L (136-145); Total Protein 7.4 g/dL (5.7-8.2)
[2023-05-21 07:17] LABS: INR 1.12 (0.9-1.15); Prothrombin Time 11.7 sec (9.3-11.8)
[2023-05-21 07:35] LABS: Base Excess 1.8 mmol/L (-2.0-2.0)
[2023-05-21] MEDS ORDERED: cefTRIAXone 1GM/50ML D5W 50 ML IV SCH (09:00)
[2023-05-21] MEDS: PANTOPRAZOLE 40 MG/10 ML VIAL INJ IV SCH (10:00)
[2023-05-21] MEDS ORDERED: ENOXAPARIN SOD 40 MG/0.4 ML SYRINGE SC SCH (10:00)
[2023-05-21] MEDS: PROPOFOL 100 ML IV SCH ×2 (10:45→17:25)
[2023-05-21 12:19] LABS: Chloride 109 mmol/L (98-107); Potassium 4.2 mmol/L (3.5-5.1); Sodium 141 mmol/L (136-145)
[2023-05-21 12:20] LABS: Anion Gap 8 (5-15); Carbon Dioxide 24 mmol/L (20-30)
[2023-05-21 12:25] LABS: BUN/Creatinine Ratio 11.4 (10.0-20.0); Blood Urea Nitrogen 13 mg/dL (9-23); Glucose 118 mg/dL (74-106)
[2023-05-21] MEDS: PIPERACILLIN-TAZOB 3.375GM 100 ML IV SCH ×2 (14:27→22:59)
[2023-05-21] MEDS: fentaNYL Drip 2500mCg/250mlNS 250 ML IV SCH (17:53)
[2023-05-22] VITALS (13 sets, daily range): BP systolic 121–159; BP diastolic 85–102; PULSE 72–97; RESP 14–18; O2SAT 96–99
[2023-05-22] MEDS: ACCU-CHEK COMFORT CURVE STRIP VI SCH ×4 (00:46→18:05)
[2023-05-22] MEDS: InsuLIN REG 1unit/0.01ml Soln (100units/ml) SC SCH ×4 (00:46→18:00)
[2023-05-22] MEDS: MIDAZOLAM DRIP 50 mg/50mL 50 ML IV SCH ×4 (03:57→22:59)
[2023-05-22 05:50] LABS: Hemoglobin 16.4 g/dL (13.5-17.5); Mean Corpuscular Hgb Conc. 33.7 g/dL (32.0-36.0)
[2023-05-22] MEDS: SOD CHL 0.45% 1,000 ML IV SCH ×2 (06:00→20:16)
[2023-05-22 06:23] LABS: Alanine Aminotransferase 66 U/L (7-40); Albumin 4.3 g/dL (3.2-4.8); Alkaline Phosphatase 63 U/L (46-116); Anion Gap 11 (5-15); Aspartate Aminotransferase 98 U/L (13-40); BUN/Creatinine Ratio 17.1 (10.0-20.0); Bilirubin, Total 0.8 mg/dL (0.2-1.0); Blood Urea Nitrogen 20 mg/dL (9-23); Calcium 8.8 mg/dL (8.7-10.4); Carbon Dioxide 25 mmol/L (20-30); Chloride 107 mmol/L (98-107); Glucose 101 mg/dL (74-106); Potassium 4.4 mmol/L (3.5-5.1); Sodium 143 mmol/L (136-145); Total Protein 7.2 g/dL (5.7-8.2)
[2023-05-22] MEDS: PIPERACILLIN-TAZOB 3.375GM 100 ML IV SCH ×3 (06:40→21:54)
[2023-05-22 06:58] LABS: Hematocrit 48.8 % (41.0-53.0); Mean Corpuscular Hemoglobin 29.9 pg (28.0-32.0); Mean Corpuscular Volume 88.6 fL (80.0-100.0); Red Blood Cells 5.51 10^6/uL (4.5-5.90); White Blood Cell 16.7 10^3/uL (4.4-10.8)
[2023-05-22 07:06] LABS: Band Neutrophils % (manual) 0; Basophils % (manual) 0 (0.0-2.0); Blast Cells 0; Metamyelocytes % 0; Myelocytes % 0; Promyelocytes % 0; Reactive Lymphocytes 0
[2023-05-22 08:05] LABS: Base Excess -0.4 mmol/L (-2.0-2.0)
[2023-05-22 08:17] LABS: Eosinophils % (manual) 1 (0-7); Lymphocytes % (manual) 10 (10.0-50.0); Monocytes % (manual) 23 (0-12)
[2023-05-22 08:18] LABS: Platelet Estimate Adequate
[2023-05-22] MEDS: PANTOPRAZOLE 40 MG/10 ML VIAL INJ IV SCH (10:00)
[2023-05-22] MEDS: fentaNYL Drip 2500mCg/250mlNS 250 ML IV SCH (13:45)
[2023-05-23] VITALS (15 sets, daily range): BP systolic 106–146; BP diastolic 71–96; PULSE 63–101; RESP 14–19; O2SAT 96–100
[2023-05-23] MEDS: ACCU-CHEK COMFORT CURVE STRIP VI SCH ×4 (00:30→18:31)
[2023-05-23] MEDS: InsuLIN REG 1unit/0.01ml Soln (100units/ml) SC SCH ×4 (00:34→18:31)
[2023-05-23] MEDS: MIDAZOLAM DRIP 50 mg/50mL 50 ML IV SCH ×2 (02:47→10:21)
[2023-05-23] MEDS: DexmedeTOMIDine 200 MCG in D5W 5% 48 ML IV SCH ×2 (04:45→10:38)
[2023-05-23 04:47] LABS: Basophils # (auto) 0.1 10 ^3/uL (0-0.2); Basophils % (auto) 0.7 % (0.0-2.0); Eosinophils # (auto) 0.5 10 ^3/uL (0-0.8); Hematocrit 44.9 % (41.0-53.0); Hemoglobin 15.2 g/dL (13.5-17.5); Lymphocytes # (auto) 1.3 10 ^3/uL (0.4-5.4); Lymphocytes % (auto) 10.6 % (10.0-50.0); Mean Corpuscular Hgb Conc. 33.8 g/dL (32.0-36.0); Mean Corpuscular Volume 88.7 fL (80.0-100.0); Monocytes # (auto) 1.4 10 ^3/uL (0-1.3); Monocytes % (auto) 11.6 % (0.0-12.0); Neutrophils % (auto) 73.1 % (37.0-80.0); Red Blood Cells 5.06 10^6/uL (4.5-5.90); Red Cell Distribution Width 14.2 % (11.8-14.3); White Blood Cell 12.3 10^3/uL (4.4-10.8)
[2023-05-23 05:02] LABS: Anion Gap 9 (5-15); Carbon Dioxide 26 mmol/L (20-30); Chloride 107 mmol/L (98-107); Sodium 142 mmol/L (136-145)
[2023-05-23] MEDS: ACETAMINOPHEN 650 MG RECT SUPP PR PRN (05:02)
[2023-05-23 05:03] LABS: Calcium 8.6 mg/dL (8.7-10.4)
[2023-05-23 05:08] LABS: BUN/Creatinine Ratio 14.2 (10.0-20.0); Blood Urea Nitrogen 18 mg/dL (9-23); Glucose 146 mg/dL (74-106)
[2023-05-23 06:50] LABS: Base Excess 1.6 mmol/L (-2.0-2.0)
[2023-05-23] MEDS: PIPERACILLIN-TAZOB 3.375GM 100 ML IV SCH (06:54)
[2023-05-23] MEDS: SOD CHL 0.45% 1,000 ML IV SCH ×2 (08:40→22:23)
[2023-05-23] MEDS: PANTOPRAZOLE 40 MG/10 ML VIAL INJ IV SCH (10:21)
[2023-05-23] MEDS: DOXYCYCLINE 100MG/250ML 250 ML IV SCH ×2 (10:21→22:21)
[2023-05-23] MEDS: PROPOFOL 100 ML IV SCH (10:44)
[2023-05-23] MEDS: fentaNYL Drip 2500mCg/250mlNS 250 ML IV SCH (13:45)
[2023-05-24] VITALS (20 sets, daily range): BP systolic 93–155; BP diastolic 60–96; PULSE 56–115; RESP 13–20; TEMP 99.5–99.7; O2SAT 97–100
[2023-05-24] MEDS: ACCU-CHEK COMFORT CURVE STRIP VI SCH ×4 (00:09→17:49)
[2023-05-24 06:00] LABS: Chloride 107 mmol/L (98-107); Potassium 3.7 mmol/L (3.5-5.1); Sodium 142 mmol/L (136-145)
[2023-05-24] MEDS: InsuLIN REG 1unit/0.01ml Soln (100units/ml) SC SCH ×4 (06:00→17:49)
[2023-05-24 06:01] LABS: Anion Gap 6 (5-15); Carbon Dioxide 29 mmol/L (20-30)
[2023-05-24 06:02] LABS: Calcium 9.3 mg/dL (8.5-10.1)
[2023-05-24 06:06] LABS: BUN/Creatinine Ratio 13.9 (10.0-20.0); Basophils # (auto) 0 10 ^3/uL (0-0.2); Basophils % (auto) 0.3 % (0.0-2.0); Blood Urea Nitrogen 15 mg/dL (9-23); Eosinophils # (auto) 0.9 10 ^3/uL (0-0.8); Eosinophils % (auto) 9.6 % (0.0-7.0); Glucose 102 mg/dL (74-106); Hematocrit 43.5 % (41.0-53.0); Hemoglobin 14.6 g/dL (13.5-17.5); Lymphocytes # (auto) 1.1 10 ^3/uL (0.4-5.4); Lymphocytes % (auto) 11.6 % (10.0-50.0); Mean Corpuscular Hemoglobin 30.4 pg (28.0-32.0); Mean Corpuscular Hgb Conc. 33.7 g/dL (32.0-36.0); Mean Corpuscular Volume 90.2 fL (80.0-100.0); Monocytes # (auto) 1.3 10 ^3/uL (0-1.3); Monocytes % (auto) 12.8 % (0.0-12.0); Neutrophils # (auto) 6.5 10 ^3/uL (1.6-8.6); Neutrophils % (auto) 65.7 % (37.0-80.0); Red Blood Cells 4.82 10^6/uL (4.5-5.90); Red Cell Distribution Width 14.1 % (11.8-14.3); White Blood Cell 9.8 10^3/uL (4.4-10.8)
[2023-05-24 07:14] LABS: Base Excess 0.6 mmol/L (-2.0-2.0)
[2023-05-24] MEDS: PANTOPRAZOLE 40 MG/10 ML VIAL INJ IV SCH (09:06)
[2023-05-24] MEDS: DOXYCYCLINE 100MG/250ML 250 ML IV SCH ×2 (09:07→22:07)
[2023-05-24] MEDS: DexmedeTOMIDine 200 MCG in D5W 5% 48 ML IV SCH (10:10)
[2023-05-24] MEDS: PROPOFOL 100 ML IV SCH ×2 (10:11→19:26)
[2023-05-24] MEDS: SOD CHL 0.45% 1,000 ML IV SCH (11:36)
[2023-05-24] MEDS: fentaNYL Drip 2500mCg/250mlNS 250 ML IV SCH (13:45)
[2023-05-25] VITALS (83 sets, daily range): BP systolic 95–178; BP diastolic 60–103; PULSE 59–116; RESP 6–26; TEMP 98.6–100.8; O2SAT 94–100
[2023-05-25] MEDS: PROPOFOL 100 ML IV SCH ×2 (00:12→04:58)
[2023-05-25] MEDS: ACCU-CHEK COMFORT CURVE STRIP VI SCH ×2 (00:12→05:22)
[2023-05-25 04:22] LABS: Basophils # (auto) 0 10 ^3/uL (0-0.2); Basophils % (auto) 0.3 % (0.0-2.0); Eosinophils # (auto) 0.8 10 ^3/uL (0-0.8); Eosinophils % (auto) 9.1 % (0.0-7.0); Hematocrit 38.9 % (41.0-53.0); Hemoglobin 13.3 g/dL (13.5-17.5); Lymphocytes % (auto) 10.9 % (10.0-50.0); Mean Corpuscular Hemoglobin 30.7 pg (28.0-32.0); Mean Corpuscular Hgb Conc. 34.2 g/dL (32.0-36.0); Mean Corpuscular Volume 89.8 fL (80.0-100.0); Monocytes # (auto) 1.1 10 ^3/uL (0-1.3); Monocytes % (auto) 11.4 % (0.0-12.0); Neutrophils # (auto) 6.3 10 ^3/uL (1.6-8.6); Neutrophils % (auto) 68.3 % (37.0-80.0); Red Blood Cells 4.33 10^6/uL (4.5-5.90); Red Cell Distribution Width 13.5 % (11.8-14.3); White Blood Cell 9.2 10^3/uL (4.4-10.8)
[2023-05-25 04:31] LABS: Alanine Aminotransferase 70 U/L (7-40); Albumin 3.9 g/dL (3.2-4.8); Alkaline Phosphatase 66 U/L (46-116); Anion Gap 6 (5-15); Aspartate Aminotransferase 72 U/L (13-40); BUN/Creatinine Ratio 16.3 (10.0-20.0); Blood Urea Nitrogen 14 mg/dL (9-23); Calcium 8.7 mg/dL (8.7-10.4); Carbon Dioxide 26 mmol/L (20-30); Chloride 106 mmol/L (98-107); Glucose 93 mg/dL (74-106); Potassium 3.9 mmol/L (3.5-5.1); Sodium 138 mmol/L (136-145)
[2023-05-25 04:32] LABS: Bilirubin, Total 0.9 mg/dL (0.2-1.0); Total Protein 6.5 g/dL (5.7-8.2)
[2023-05-25] MEDS: DexmedeTOMIDine 200 MCG in D5W 5% 48 ML IV SCH (04:59)
[2023-05-25] MEDS: SOD CHL 0.45% 1,000 ML IV SCH (04:59)
[2023-05-25] MEDS: InsuLIN REG 1unit/0.01ml Soln (100units/ml) SC SCH ×2 (05:22)
[2023-05-25 08:51] LABS: Base Excess -2.6 mmol/L (-2.0-2.0)
[2023-05-25] MEDS: PANTOPRAZOLE 40 MG/10 ML VIAL INJ IV SCH (09:54)
[2023-05-25] MEDS: DOXYCYCLINE 100 MG TAB/CAP PO SCH ×2 (10:00→21:43)
[2023-05-25] MEDS ORDERED: LORazepam 2MG/ML-1ML VIAL IV PRN (11:45)
[2023-05-25] MEDS ORDERED: DOXYCYCLINE 100MG/250ML 250 ML IV ONE (11:45)
[2023-05-25] MEDS ORDERED: METOPROLOL TARTRATE 50 MG TAB PO ONE (13:15)
[2023-05-25] MEDS: ACETAMINOPHEN 650 MG RECT SUPP PR PRN (16:48)
[2023-05-26] VITALS (13 sets, daily range): BP systolic 133–157; BP diastolic 68–90; PULSE 88–104; RESP 13–23; TEMP 98.2–99.1; O2SAT 94–98
[2023-05-26] MEDS ORDERED: IBUPROFEN 600 MG TAB PO PRN (03:15)
[2023-05-26] MEDS: DOXYCYCLINE 100 MG TAB/CAP PO SCH (09:33)
[2023-05-26] MEDS: PANTOPRAZOLE 40 MG/10 ML VIAL INJ IV SCH (09:34)
[2023-05-26] MEDS ORDERED: DULO60CA41 PO (09:53)
[2023-05-26] MEDS ORDERED: DOX100T PO (09:53)
== END 2023-05-26 14:10 | disposition home or self-care (01) | DRG 720 ==
LOC: EDBD 09:57 → ER 09:57 → TELE 14:22 → ICU WEST 05-24 22:35
PROVIDERS: ADMIT Nurse Practitioner Family; ATTEND Nurse Practitioner Acute Care
PROC: 0BH17EZ Insertion of Endotracheal Airway into Trachea, Via Natural or Artificial Opening (ICD-10-PCS; principal; 2023-05-20)
PROC: 5A1955Z Respiratory Ventilation, Greater than 96 Consecutive Hours (ICD-10-PCS; 2023-05-20)
PROC: 06HY33Z Insertion of Infusion Device into Lower Vein, Percutaneous Approach (ICD-10-PCS; 2023-05-20)
DX: A41.9 Sepsis, unspecified organism (principal); J96.01 Acute respiratory failure with hypoxia; J69.0 Pneumonitis due to inhalation of food and vomit; G92.8 Other toxic encephalopathy; J15.9 Unspecified bacterial pneumonia; K92.2 Gastrointestinal hemorrhage, unspecified; T42.8X1A Poisoning by antiparkinsonism drugs and other central muscle-tone depressants, accidental (unintentional), initial encounter; F10.129 Alcohol abuse with intoxication, unspecified; F20.0 Paranoid schizophrenia; R45.851 Suicidal ideations; J45.909 Unspecified asthma, uncomplicated; F32.A Depression, unspecified; Z56.0 Unemployment, unspecified; Z79.899 Other long term (current) drug therapy; Y92.89 Other specified places as the place of occurrence of the external cause
CPT/HCPCS: 31500; 36415; 36556; 36600; 70450; 71045; 80048; 80053; 80307; 80320; 80329; 81001; 82805; 82962; 83605; 83735; 85007; 85014; 85018; 85025; 85027; 85610; 85730; 86850; 86900; 86901; 87040; 87070; 87077; 87081; 87086; 87186; 87205; 92610; 93005; 93306; 94002; 94003; 94640; 99291; C9113; G0378; J0330; J1815; J2250; J2543; J2704; J3490; J7060

== ENCOUNTER 2025-01-03 12:22 | Inpatient (IN) | payer MEDICAID ==
[~2025-01-03] VITALS: Ht 177.8 cm; Wt 83.7 kg
[~2025-01-03 12:22] MED LIST changes: +DOX100T PO; +DULO60CA41 PO
--- NOTE | 2025-01-03 14:17 | ED.PDOC ---
SOB-HPI HPI Comments 59-year-old male presents to the ED via EMS for chief complaint of shortness of breath. Patient states that he woke up earlier this a.m at 4:00 a.m gasping for air. Patient states that he continued to be short of breath and states he tried to calm down while taking a shower. Patient states after showering, he cont inued to be short of breath and called EMS due to persistence of his symptoms. Patient states EMS arrived and checked vitals and states patient had stable vitals and no noted respiratory distress. Patient was advised by EMS to come ED for further evaluation but patient states due to stable vitals he initially did not want to come to the ED. Pt states when he subsequently attempted to lie down with his upper body propped up on pillows, but continued to have symptoms and called EMS again. Pt also admits to snorting around 60 crushed percocet pills over the last 4 days. Patient does state in the ED, that he is chronic heavy drinker, but stopped drinking around 2 weeks ago due to GI upset. Patient in the ED has noted blood pressure 169/ 82 with otherwise stable vitals including temperature 98 F respiratory rate 16 heart rate 75 and O2 saturation 99% on room air. Patient otherwise denies any other symptoms at this time. Chief Complaint: Shortness of Breath Time Seen by MD: 14:15 Primary Care Provider: UNKNOWN Reviewed notes: Medications, Allergies Information Source: Patient Mode of Arrival: EMS Past Medical History PAST MEDICAL HISTORY: Asthma Past Medical History (Other): PUD Surgical History (Other): Bilateral hand Family History Family History: Reviewed,noncontributory to illness Social History Smoker: Cigarettes, Unobtainable Alcohol: Heavy, Unobtainable Drugs: Methamphetamine, Other (Percocet) Lives In: Home Constitutional: denies: chills, diaphoresis, fatigue, fever, malaise, sweats, weakness, others EENTM: denies: blurred vision, double vision, ear bleeding, ear discharge, ear drainage, ear pain, ear ringing, eye pain, eye redness, hearing loss, mouth pain, mouth swelling, nasal discharge, nose bleeding, nose congestion, nose pain, photophobia, tearing, throat pain, throat swelling, voice changes, others Respiratory: reports: shortness of breath; denies: cough, hemoptysis, orthopnea, SOB at rest, SOB with excertion, stridor, wheezing, others Cardiovascular: denies: chest pain, dizzy spells, diaphoresis, Dyspnea on exertion, edema, irregular heart beat, left arm pain, lightheadedness, palpitations, PND, syncope, others Gastrointestinal: denies: abdomen distended, abdominal pain, blood streaked bowels, constipated, diarrhea, dysphagia, difficulty swallowing, hematemesis, melena, nausea, poor appetite, poor fluid intake, rectal bleeding, rectal pain, vomiting, others Genitourinary: denies: burning, dysuria, flank pain, frequency, hematuria, incontinence, penile discharge, penile sore, pain, testicle pain, testicle swelling, urgency, others Neurological: denies: dizziness, fainting, headache, left sided numbness, left sided weakness, numbness, paresthesia, pre-existing deficit, right sided numbness, right sided weakness, seizure, speech problems, tingling, tremors, weakness, others Musculoskeletal: denies: back pain, gout, joint pain, joint swelling, muscle pain, muscle stiffness, neck pain, others Integumetry: denies: bruises, change in color, change in hair/nails, dryness, laceration, lesions, lumps, rash, wounds, others Allergic/Immunocompromised: denies: Difficulty Healing, Frequent Infections, Hives, Itching, others Hematologic/Lymphatic: denies: anemia, blood clots, easy bleeding, easy bruising, swollen glands, others Endocrine: denies: excessive hunger, excessive sweating, excessive thirst, excessive urination, flushing, intolerance to cold, intolerance to heat, unexplained weight gain, unexplained weight loss, others Psychiatric: denies: anxiety, bipolar disorder, depression, hopeless, panic di sorder, schizophrenia, sleepless, suicidal, others All Other Systems: Reviewed and Negative Physical Exam General Appearance: No Apparent Distress HEENT: Other (Pupils and face symmetric. Moist mucous membranes.) Neck: Full Range of Motion, Normal Inspection Respiratory: Decreased Breath Sounds, No Accessory Muscle Use, No Respiratory Distress Cardiovascular: No Edema, No JVD, Regular Rate/Rhythm Breast Exam: Deferred Gastrointestinal: Non Tender, Soft Genitalia: Deferred Pelvic: Deferred Rectal: Deferred Extremities: Normal inspection, Normal range of motion, Non-tender, No pedal edema Neurologic: Alert (Oriented x4), Normal Affect, Other (Anxious. Ambulatory.) Cerebellar Function: NOT DONE Reflexes: NOT DONE Skin: Dry, Normal Color, Warm Lymphatic: NOT DONE EKG EKG : Comments Sinus rhythm, rate 68, normal intervals, normal axis, occasional PVCs, normal QRS, nonspecific T change. Was a procedure done? Was a procedure done?: No Differential Dx Differential Diagnosis: Anxiety, Asthma, Bronchitis, CHF, COPD, Panic Attack, Respiratory Distress, URI Comments Drug/alcohol intoxication, respiratory depression from opiates, among other X-Ray, Labs, Meds, VS Vital Signs Date Time Temp Pulse Resp B/P (MAP) Pulse Ox O2 Delivery O2 Flow Rate FiO2 01/03/25 17:36 79 18 97 Room Air* 0 21 01/03/25 17:36 97.9 79 18 125/86 (99) 97 97.9 01/03/25 16:26 20 97 Room Air* 0 21 01/03/25 16:10 98.8 69 16 133/88 (103) 97 98.8 01/03/25 12:28 98.3 75 16 169/82 99 98.3 01/03/25 12:24 68 Lab Test 01/03/25 16:26 01/03/25 15:00 01/03/25 14:14 Range/Units Urine Color Yellow Yellow Urine Clarity Clear Clear Urine pH 7.0 5.0-9.0 Urine Specific [place] 1.014 1.001-1.035 Urine Protein Negative Negative Urine Ketones Negative Negative Urine Blood Negative Negative /uL Urine Nitrite Negative Negative Urine Bilirubin Negative Negative Urine Urobilinogen Normal Negative mg/dL Urine Leukocyte Esterase Negative Negative /uL Urine RBC 2 0 - 3 /hpf Urine Microscopic WBC < 1 0-3 /HPF Urine Squamous Epithelial Cells None seen <5 /hpf Urine Bacteria None seen None Seen /hpf Urine Yeast (Budding) Occasional None Seen /hpf Urine Glucose Normal Normal mg/dL Urine Opiates Screen Neg NEGATIVE Urine Fentanyl Screen Neg NEGATIVE Urine Barbiturates Screen Neg NEGATIVE Urine Phencyclidine Screen Neg NEGATIVE Urine Amphetamines Screen Neg NEGATIVE Urine Benzodiazepines Screen Neg NEGATIVE Urine Cocaine Screen Neg NEGATIVE Urine Cannabinoids Screen Neg NEGATIVE Troponin I High Sensitivity < 3 L 3 L </=54 ng/L White Blood Count 8.5 4.4-10.8 10^3/uL Red Blood Count 4.61 4.5-5.90 10^6/uL Hemoglobin 14.3 13.5-17.5 g/dL Hematocrit 41.3 41.0-53.0 % Mean Corpuscular Volume 89.6 80.0-100.0 fL Mean Corpuscular Hemoglobin 31.0 28.0-32.0 pg Mean Corpuscular Hemoglobin Concent 34.7 32.0-36.0 g/dL Red Cell Distribution Width 14.0 11.8-14.3 % Platelet Count 238 140-450 10^3/uL Mean Platelet Volume 8.6 6.9-10.8 fL Neutrophils (%) (Auto) 75.1 37.0-80.0 % Lymphocytes (%) (Auto) 11.8 10.0-50.0 % Monocytes (%) (Auto) 8.9 0.0-12.0 % Eosinophils (%) (Auto) 3.3 0.0-7.0 % Basophils (%) (Auto) 0.9 0.0-2.0 % Neutrophils # (Auto) 6.4 1.6-8.6 10 ^3/uL Lymphocytes # (Auto) 1.0 0.4-5.4 10 ^3/uL Monocytes # (Auto) 0.8 0-1.3 10 ^3/uL Eosinophils # (Auto) 0.3 0-0.8 10 ^3/uL Basophils # (Auto) 0.1 0-0.2 10 ^3/uL Nucleated Red Blood Cells 0.1 % Sodium Level 139 136-145 mmol/L Potassium Level 4.1 3.5-5.1 mmol/L Chloride Level 106 98-107 mmol/L Carbon Dioxide Level 25 20-31 mmol/L Anion Gap 8 5-15 Blood Urea Nitrogen 10 9-23 mg/dL Creatinine 1.02 0.700-1.30 mg/dL Glomerular Filtration Rate Calc 85 >90 mL/min BUN/Creatinine Ratio 9.8 L 10.0-20.0 Serum Glucose 102 74-106 mg/dL Calcium Level 9.6 8.7-10.4 mg/dL B-Type Natriuretic Peptide 205.50 0-100 pg/mL Current Medications Medications (Trade) Dose Ordered Sig/Diamante Route Start Time Stop Time Status Last Admin Albuterol (Ventolin Medneb) 5 mg ONCE ONCE NEB 01/03/25 14:00 01/03/25 14:01 DC 01/03/25 16:25 Ipratropium [place] (Atrovent Medneb) 0.5 mg ONCE ONCE NEB 01/03/25 14:00 01/03/25 14:01 DC 01/03/25 16:[address] [address] Ph: [phone] DIAGNOSTIC IMAGING Diagnostic Imaging Report : [id number] Signed PATIENT: DAVID LEYVA ACCT: [id number] UNIT: [id number] : 1965 LOC: ER ROOM / BED: / AGE / SEX: 59 / M ADM STATUS: REG ER SERVICE [id number] ORDERING PHYSICIAN: KINSEY SWIFT MD PROCEDURE(s): CXRP - CHEST PORTABLE REASON: sob ORDER NUMBER(s): [id number], ACCESSION NUMBER(s): [id number] EXAM: XY CHEST PORTABLE Indication: sob Technique: Single frontal view of the chest was obtained Comparison: XY CHEST PORTABLE on DOS: 05/25/23, XY CHEST PORTABLE on DOS: 05/24/23, XY CHEST PORTABLE on DOS: 05/23/23, XY CHEST PORTABLE on DOS: 05/22/23, XY CHEST PORTABLE on DOS: 05/21/23 FINDINGS: Lines and Tubes: None Lungs: No focal consolidation. Pleura: No effusion. No pneumothorax. Cardiomediastinal contours: Unremarkable Bones: No acute osseous abnormality. IMPRESSION: No acute cardiopulmonary disease. ATED BY: EDIL ROBERSON MD DICTATED DATE/TIME: 01/03/251421 SIGNED BY: EDIL ROBERSON MD SIGNED DATE/TIME: 01/03/251421 CC: X-Ray, Labs, Meds, VS Comment 59-year-old male with a history of asthma, PUD and polysubstance abuse comp laining of shortness of breath and orthopnea. Vitals remarkable for BP 169/82. Oxygen saturation is normal on room air Exam remarkable for slightly diminished breath sounds at bilateral lung bases Rhythm strip independently interpreted by me: Sinus rhythm, rate 68, no ectopy. Chest x-ray unremarkable CBC, basic metabolic panel and serial troponins unremarkable. BNP 205.5 Patient treated with the following in the ED: Albuterol 5 mg/Atrovent 0.5 mg nebulized, Solu-Medrol 125 mg IV, Ativan 0.5 mg IV On re-evaluation, patient was still feeling short of breath, and stated he was waking up gasping for air after falling asleep here. Patient stated he was not comfortable being discharged home due to feeling like he will stop breathing if he falls asleep. BNP is abnormal, raising suspicion for possible CHF. Plan will be to admit the patient for Cardiology evaluation. Time of 1ST Reevaluation: 16:28 Reevaluation 1ST: Improved Patient Education/Counseling: Diagnosis, Treatment Family Education/Counseling: No Family Present SEPSIS Sepsis Screen Date sepsis recognized/suspect: Jan 03, 2025 Time Sepsis recognized/suspect: 1227 Recent Procedure: No On Antibiotic Therapy: No Respiratory Rate >20: No Heart Rate >90: No Temp<36 C (96.8 F) or >38.3 C: No SBP <90 or MAP <65 mmHG: No New Acute Mental Status Change: No Is the patient on CPAP, BIPAP,: No Physician Orders Electrocardigram (01/03/25 12:29) Chest Portable (01/03/25 13:56) Vital Signs Date Time Temp Pulse Resp B/P (MAP) Pulse Ox O2 Delivery O2 Flow Rate FiO2 01/03/25 17:36 79 18 97 Room Air* 0 21 01/03/25 17:36 97.9 79 18 125/86 (99) 97 97.9 01/03/25 16:26 20 97 Room Air* 0 21 01/03/25 16:10 98.8 69 16 133/88 (103) 97 98.8 01/03/25 12:28 98.3 75 16 169/82 99 98.3 01/03/25 12:24 68 Laboratory Tests Test 01/03/25 14:14 White Blood Count 8.5 10^3/uL (4.4-10.8) Medications Medications Dose Ordered Sig/Diamante Route Start Time Stop Time Status Last Admin Dose Admin Albuterol 5 mg ONCE ONCE NEB 01/03/25 14:00 01/03/25 14:01 DC 01/03/25 16:25 Ipratropium [place] 0.5 mg ONCE ONCE NEB 01/03/25 14:00 01/03/25 14:01 DC 01/03/25 16:26 Departure 1 Departure Time of Disposition: 16:28 Impression: Primary Impression: Shortness of breath Disposition: ADMITTED INPATIENT Admit to: Tele Condition: Guarded Additional Instructions: Your blood tests were unremarkable. Your chest x-ray was normal. Your EKG was unremarkable. Your symptoms may have been due to asthma, anxiety, or overuse of Percocet. Follow-up with your primary doctor in 1-2 days. Return to ER for persistent or worsening symptoms. Critical Care Note Critical Care Time?: No Stability Stability form required: No Heart Score Heart Score: Heart Score Response (Comments) Value History N/A 0 EKG N/A 0 Age N/A 0 Risk Factors N/A 0 Troponin N/A 0 Total 0 I personally scribed for KINSEY SWIFT MD ([email or web address]) on 01/03/25 at 14:17. Electronically submitted by Quentin Mad[facility] ([email or web address] I personally scribed for KINSEY SWIFT MD ([email or web address]) on 01/03/25 at 15:12. Electronically submitted by Quentin Madera ([email or web address] KINSEY SWIFT MD Jan 03, 2025 14:17
--- NOTE | 2025-01-03 14:24 | DVH ---
EXAM: XY CHEST PORTABLE Indication: sob Technique: Single frontal view of the chest was obtained Comparison: XY CHEST PORTABLE on DOS: 05/25/23, XY CHEST PORTABLE on DOS: 05/24/23, XY CHEST PORTABLE o n DOS: 05/23/23, XY CHEST PORTABLE on DOS: 05/22/23, XY CHEST PORTABLE on DOS: 05/21/23 FINDINGS: Lines and Tubes: None Lungs: No focal consolidation. Pleura: No effusion. No pneumothorax. Cardiomediastinal contours: Unremarkable Bones: No acute osseous abnormality. IMPRESSION: No acute cardiopulmonary disease.
[2025-01-03 14:54] LABS: Hematocrit 41.3 % (41.0-53.0); Hemoglobin 14.3 g/dL (13.5-17.5); Mean Corpuscular Hemoglobin 31.0 pg (28.0-32.0); Mean Corpuscular Volume 89.6 fL (80.0-100.0); Nucleated Red Blood Cells % 0.1 %
[2025-01-03 15:03] LABS: Chloride 106 mmol/L (98-107); Potassium 4.1 mmol/L (3.5-5.1); Sodium 139 mmol/L (136-145)
[2025-01-03 15:04] LABS: Anion Gap 8 (5-15); Calcium 9.6 mg/dL (8.7-10.4); Carbon Dioxide 25 mmol/L (20-31)
[2025-01-03 15:09] LABS: BUN/Creatinine Ratio 9.8 (10.0-20.0); Blood Urea Nitrogen 10 mg/dL (9-23); Glucose 102 mg/dL (74-106)
[2025-01-03] MEDS: ALBUTEROL SULF 2.5 MG/0.5ML(0.5%) NEB SOLN NEB ONE (16:25)
[2025-01-03] MEDS: IPRATROPIUM BROM 0.5 MG/2.5ML INH SOL NEB ONE (16:26)
[2025-01-03 16:42] LABS: Urine Budding Yeast OCCASIONAL /hpf (None Seen); Urine Protein, UAD Negative (Negative)
[2025-01-03 16:52] LABS: Amphetamine Screen, Urine Neg (NEGATIVE); Barbiturate Scree,Urine Neg (NEGATIVE); Benzodiazephine Screen, Urine Neg (NEGATIVE); Cannabinoid Screen, Urine Neg (NEGATIVE); Cocaine Screen, Urine Neg (NEGATIVE); Opiate Scree,Urine Neg (NEGATIVE); Phencyclidine Screen, Urine Neg (NEGATIVE)
[2025-01-03 17:36] VITALS: PULSE 79; RESP 18; O2SAT 97
[2025-01-03] MEDS ORDERED: ACETAMINOPHEN 325 MG TAB PO PRN (19:30)
--- NOTE | 2025-01-03 19:37 | ECG ---
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
[2025-01-03] MEDS: methylPREDNISolone SOD SUCC 125 MG/2 ML VL IV ONE (20:02)
[2025-01-03] MEDS: LORazepam 2MG/ML-1ML VIAL IV ONE (20:02)
[2025-01-03 20:10] VITALS: O2SAT 97
[2025-01-03 20:40] VITALS: BP 125/86; PULSE 79; RESP 18; TEMP 97.9; O2SAT 97
--- NOTE | 2025-01-03 21:55 | DVHHP2 ---
History of Present Illness Reason for Visit: Shortness for breath History of Present Illness 59-year-old male presents for evaluation of shortness for breath. Patient reports a one day history of worsening shortness for breath. He does have a history of asthma yet he does not have any inhalers at home. Denies chest pain or palpitations. Past Medical History Asthma Past Surgical History Denies Smoke: <1 pack per day ALCOHOL: heavy Drugs: Other (Methamphetamine) Review of Systems Review of Systems Review of systems are currently negative otherwise addressed in HPI. Allergies: Coded Allergies: NO KNOWN ALLERGIES (Unverified , 02/19/10) Medications Current Medications Medications Dose Ordered Sig/Diamante Route Start Time Stop Time Status Last Admin Dose Admin Albuterol 2.5 mg Q6HPRN PRN NEB 01/03/25 19:30 Ipratropium [place] 0.5 mg Q6HPRN PRN NEB 01/03/25 19:30 Methylprednisolone Sodium Succinate 40 mg BID IV 01/03/25 22:00 Temazepam 15 mg QHSP PRN PO 01/03/25 19:30 Ondansetron HCl 4 mg Q4HP PRN IV 01/03/25 19:30 Acetaminophen 650 mg Q6HP PRN PO 01/03/25 19:30 Exam Vital Signs Vital Signs Date Time Temp Pulse Resp B/P (MAP) Pulse Ox O2 Delivery O2 Flow Rate FiO2 01/03/25 20:40 97.9 79 18 125/86 97 97.9 01/03/25 20:10 0.0 01/03/25 20:10 Room Air* 21 Exam Gen: 59-year-old male in mild distress Skin: Warm, dry, normal color and texture, no rash. HEENT: Normocephalic atraumatic, mucous membranes moist and pink. Neck: Cervical and supraclavicular nodes normal without enlargement, trachea is midline, thyroid gland is normal without masses. Pulmonary: Bilateral wheeze Cardiac: Regular rate and rhythm. No murmur Abdomen: Soft, nontender, nondistended, bowel sounds present all 4 quadrants, no guarding, no rigidity, no organomegaly. Extremities: No cyanosis, clubbing, no edema Neuro: Cranial nerves II through XII grossly intact, normal affect and speech, no focal motor deficits. Labs/Xrays ORDERING PHYSICIAN: KINSEY SWIFT MD PROCEDURE(s): CXRP - CHEST PORTABLE REASON: sob ORDER NUMBER(s): [id number], ACCESSION NUMBER(s): [id number] EXAM: XY CHEST PORTABLE Indication: sob Technique: Single frontal view of the chest was obtained Comparison: XY CHEST PORTABLE on DOS: 05/25/23, XY CHEST PORTABLE on DOS: 05/24/23, XY CHEST PORTABLE on DOS: 05/23/23, XY CHEST PORTABLE on DOS: 05/22/23, XY CHEST PORTABLE on DOS: 05/21/23 FINDINGS: Lines and Tubes: None Lungs: No focal consolidation. Pleura: No effusion. No pneumothorax. Cardiomediastinal contours: Unremarkable Bones: No acute osseous abnormality. IMPRESSION: No acute cardiopulmonary disease. Labs Test 01/03/25 16:26 01/03/25 15:00 01/03/25 14:14 Range/Units Urine Color Yellow Yellow Urine Clarity Clear Clear Urine pH 7.0 5.0-9.0 Urine Specific [place] 1.014 1.001-1.035 Urine Protein Negative Negative Urine Ketones Negative Negative Urine Blood Negative Negative /uL Urine Nitrite Negative Negative Urine Bilirubin Negative Negative Urine Urobilinogen Normal Negative mg/dL Urine Leukocyte Esterase Negative Negative /uL Urine RBC 2 0 - 3 /hpf Urine Microscopic WBC < 1 0-3 /HPF Urine Squamous Epithelial Cells None seen <5 /hpf Urine Bacteria None seen None Seen /hpf Urine Yeast (Budding) Occasional None Seen /hpf Urine Glucose Normal Normal mg/dL Urine Opiates Screen Neg NEGATIVE Urine Fentanyl Screen Neg NEGATIVE Urine Barbiturates Screen Neg NEGATIVE Urine Phencyclidine Screen Neg NEGATIVE Urine Amphetamines Screen Neg NEGATIVE Urine Benzodiazepines Screen Neg NEGATIVE Urine Cocaine Screen Neg NEGATIVE Urine Cannabinoids Screen Neg NEGATIVE Troponin I High Sensitivity < 3 L </=54 ng/L White Blood Count 8.5 4.4-10.8 10^3/uL Red Blood Count 4.61 4.5-5.90 10^6/uL Hemoglobin 14.3 13.5-17.5 g/dL Hematocrit 41.3 41.0-53.0 % Mean Corpuscular Volume 89.6 80.0-100.0 fL Mean Corpuscular Hemoglobin 31.0 28.0-32.0 pg Mean Corpuscular Hemoglobin Concent 34.7 32.0-36.0 g/dL Red Cell Distribution Width 14.0 11.8-14.3 % Platelet Count 238 140-450 10^3/uL Mean Platelet Volume 8.6 6.9-10.8 fL Neutrophils (%) (Auto) 75.1 37.0-80.0 % Lymphocytes (%) (Auto) 11.8 10.0-50.0 % Monocytes (%) (Auto) 8.9 0.0-12.0 % Eosinophils (%) (Auto) 3.3 0.0-7.0 % Basophils (%) (Auto) 0.9 0.0-2.0 % Neutrophils # (Auto) 6.4 1.6-8.6 10 ^3/uL Lymphocytes # (Auto) 1.0 0.4-5.4 10 ^3/uL Monocytes # (Auto) 0.8 0-1.3 10 ^3/uL Eosinophils # (Auto) 0.3 0-0.8 10 ^3/uL Basophils # (Auto) 0.1 0-0.2 10 ^3/uL Nucleated Red Blood Cells 0.1 % Sodium Level 139 136-145 mmol/L Potassium Level 4.1 3.5-5.1 mmol/L Chloride Level 106 98-107 mmol/L Carbon Dioxide Level 25 20-31 mmol/L Anion Gap 8 5-15 Blood Urea Nitrogen 10 9-23 mg/dL Creatinine 1.02 0.700-1.30 mg/dL Glomerular Filtration Rate Calc 85 >90 mL/min BUN/Creatinine Ratio 9.8 L 10.0-20.0 Serum Glucose 102 74-106 mg/dL Calcium Level 9.6 8.7-10.4 mg/dL B-Type Natriuretic Peptide 205.50 0-100 pg/mL SEPSIS Sepsis Screen Date sepsis recognized/suspect: Jan 03, 2025 Time Sepsis recognized/suspect: 1228 Recent Procedure: No On Antibiotic Therapy: No Respiratory Rate >20: No Heart Rate >90: No Temp<36 C (96.8 F) or >38.3 C: No SBP <90 or MAP <65 mmHG: No New Acute Mental Status Change: No Is the patient on CPAP, BIPAP,: No Physician Orders Chest Portable (01/03/25 13:56) Albuterol Medneb (Ventolin Medneb) (01/03/25 19:30) Ipratropium Medneb (Atrovent Medneb) (01/03/25 19:30) Methylprednisolone Sod Succ (Solu Medrol (01/03/25 22:00) Basic Metabolic Panel (01/04/25 04:00) Admit (01/03/25 19:30) Temazepam (Restoril) (01/03/25 19:30) Ondansetron Hcl (Zofran) (01/03/25 19:30) Cardiac Diet-2gna,Lofat,Lochol (01/04/25 Breakfast) Condition: Stable (01/03/25 19:30) Acetaminophen Tablet (Tylenol Tablet) (01/03/25 19:30) Bedrest With Bathroom Privileg (01/03/25 19:30) Vital Signs Date Time Temp Pulse Resp B/P (MAP) Pulse Ox O2 Delivery O2 Flow Rate FiO2 01/03/25 20:40 97.9 79 18 125/86 97 97.9 01/03/25 20:10 97 0.0 01/03/25 20:10 97 Room Air* 0 21 01/03/25 17:36 79 18 97 Room Air* 0 21 01/03/25 17:36 97.9 79 18 125/86 (99) 97 97.9 01/03/25 16:26 20 97 Room Air* 0 21 01/03/25 16:10 98.8 69 16 133/88 (103) 97 98.8 Laboratory Tests Test 01/03/25 14:14 White Blood Count 8.5 10^3/uL (4.4-10.8) Medications Medications Dose Ordered Sig/Diamante Route Start Time Stop Time Status Last Admin Dose Admin Albuterol 5 mg ONCE ONCE NEB 01/03/25 14:00 01/03/25 14:01 DC 01/03/25 16:25 5 MG Ipratropium [place] 0.5 mg ONCE ONCE NEB 01/03/25 14:00 01/03/25 14:01 DC 01/03/25 16:26 0.5 MG Lorazepam 0.5 mg ONCE ONCE IV 01/03/25 14:00 01/03/25 14:01 DC 01/03/25 20:02 0.5 MG Methylprednisolone Sodium Succinate 125 mg ONCE ONCE IV 01/03/25 14:00 01/03/25 14:01 DC 01/03/25 20:02 125 MG Assessment/Plan Assessment/Plan Assessment Acute on chronic respiratory failure Asthma exacerbation Plan Admit the patient to Med surge to the hospitalist Med nebs Continue treatment per orders. Plan discussed with: Patient My Orders Orders - MANJU MEADOWS Procedure Category Date Status Time Albuterol Medneb PHA 01/03/25 In Process (Ventolin Medneb) 19:30 Ipratropium Medneb PHA 01/03/25 In Process (Atrovent Medneb) 19:30 Methylprednisolone PHA 01/03/25 In Process Sod Succ (Solu Medrol 22:00 Basic Metabolic Panel LAB 01/04/25 Verified 04:00 Admit ADMIT 01/03/25 Transmitted 19:30 Temazepam (Restoril) PHA 01/03/25 In Process 19:30 Ondansetron Hcl PHA 01/03/25 In Process (Zofran) 19:30 Cardiac DIET 01/04/25 Transmitted Diet-2gna,Lofat,Lochol Breakfast Condition: Stable ANTONIA 01/03/25 In Process 19:30 Acetaminophen Tablet PHA 01/03/25 In Process (Tylenol Tablet) 19:30 Bedrest With Bathroom ANTONIA 01/03/25 In Process Privileg 19:30 Date of Service: Jan 03, 2025 Billing Provider: MANJU MEADOWS Common Visit Codes: [id number] INP/OBS CARE (HIGH) MANJU MEADOWS Jan 03, 2025 21:55
[2025-01-03] MEDS: methylPREDNISolone SOD SUCC 40 MG/ML VL IV SCH (22:00)
[2025-01-03 22:50] VITALS: BP 136/71; PULSE 67; RESP 16; TEMP 97.6; O2SAT 100
[2025-01-04] VITALS (11 sets, daily range): BP systolic 112–135; BP diastolic 71–93; PULSE 51–94; RESP 16–18; TEMP 97.8–98.3; O2SAT 95–98
[2025-01-04] MEDS: ONDANSETRON HCL 4 MG/2 ML VIAL IV PRN (06:48)
[2025-01-04 06:53] LABS: Chloride 106 mmol/L (98-107); Potassium 4.2 mmol/L (3.5-5.1); Sodium 140 mmol/L (136-145)
[2025-01-04 06:54] LABS: Anion Gap 11 (5-15); Calcium 9.8 mg/dL (8.7-10.4); Carbon Dioxide 23 mmol/L (20-31)
[2025-01-04 06:59] LABS: BUN/Creatinine Ratio 12.2 (10.0-20.0); Blood Urea Nitrogen 12 mg/dL (9-23)
[2025-01-04 07:00] LABS: Glucose 144 mg/dL (74-106)
[2025-01-04] MEDS: ALBUTEROL SULF 2.5 MG/0.5ML(0.5%) NEB SOLN NEB PRN (08:54)
[2025-01-04] MEDS: IPRATROPIUM BROM 0.5 MG/2.5ML INH SOL NEB PRN (08:54)
--- NOTE | 2025-01-04 11:55 | DVHPN2 ---
Subjective The patient is seen and examined at bedside. Complain of shortness for breath. Reviewed: Care Plan, H&P, Labs, Medications, Previous Orders, Radiology Changes from previous H/P or p: No Changes Objective Vitals Vital Signs Date Time Temp Pulse Resp B/P (MAP) Pulse Ox O2 Delivery O2 Flow Rate FiO2 01/04/25 09:40 97 Room Air* 0 21 01/04/25 09:02 79 18 01/04/25 08:30 97.9 135/80 (98) 97.9 Intake/Output Intake and Output 01/04/25 07:00 Intake Total 300 ml Balance 300 ml Intake Oral 300 ml # Voids 1 General Appearance: Alert, Oriented X3, Cooperative, No acute distress HEENT: Atraumatic, PERRLA, EOMI, Mucous membr. moist/pink Neck: Supple Lungs: Clear to auscultation, Normal air movement Cardiovascular: Regular rate, Normal S1, Normal S2, No murmurs, Gallops, Rubs Abdomen: Normal bowel sounds, Soft, No tenderness Neuro: Cranial nerves 3-12 NL Psych/Mental Status: Mental status NL Medications Current Medications Medications Dose Ordered Sig/Diamante Route Start Time Stop Time Status Last Admin Dose Admin Albuterol 2.5 mg Q6HPRN PRN NEB 01/03/25 19:30 01/04/25 08:54 2.5 MG Ipratropium [place] 0.5 mg Q6HPRN PRN NEB 01/03/25 19:30 01/04/25 08:54 0.5 MG Methylprednisolone Sodium Succinate 40 mg BID IV 01/03/25 22:00 01/04/25 09:13 40 MG Temazepam 15 mg QHSP PRN PO 01/03/25 19:30 Ondansetron HCl 4 mg Q4HP PRN IV 01/03/25 19:30 01/04/25 06:48 4 MG Acetaminophen 650 mg Q6HP PRN PO 01/03/25 19:30 Laboratory Results Laboratory Tests 01/03/25 14:14 01/04/25 06:18 Chemistry Test 01/03/25 14:14 01/04/25 06:18 Calcium Level 9.6 mg/dL (8.7-10.4) 9.8 mg/dL (8.7-10.4) Coagulation Test 01/03/25 22:01 D-Dimer, Quantitative < 0.19 mg/L FEU (0.0-0.49) Cardiac Markers Test 01/03/25 14:14 B-Type Natriuretic Peptide 205.50 pg/mL (0-100) Urinalysis Test 01/03/25 16:26 Urine Color Yellow (Yellow) Urine Clarity Clear (Clear) Urine pH 7.0 (5.0-9.0) Urine Specific [place] 1.014 (1.001-1.035) Urine Protein Negative (Negative) Urine Ketones Negative (Negative) Urine Blood Negative /uL (Negative) Urine Nitrite Negative (Negative) Urine Bilirubin Negative (Negative) Urine Urobilinogen Normal mg/dL (Negative) Urine Leukocyte Esterase Negative /uL (Negative) Urine RBC 2 /hpf (0 - 3) Urine Microscopic WBC < 1 /HPF (0-3) Urine Squamous Epithelial Cells None seen /hpf (<5) Urine Bacteria None seen /hpf (None Seen) Urine Yeast (Budding) Occasional /hpf (None Urine Glucose Normal mg/dL (Normal) Labs and/or images reviewed: Labs reviewed by me Assessment/Plan Assessment/Plan Acute on chronic respiratory failure Asthma exacerbation Continuing current management. Continuing with nebulizer. Continuing with Solu-Medrol IV. We will add IV antibiotic Rocephin 1 g IV q.day This medical document was created using an electronic medical record system with [employer] direct computerized dictation system. Although this document has been carefully reviewed, there may still be some phonetic and typographical errors. These areas are purely typographical due to imperfections of the software programs, and do not reflect any compromise in the patient's medical care. Plan discussed with: Patient Date of Service: Jan 04, 2025 Billing Provider: KODY MARTINEZ MD Common Visit Codes: [id number] INP/OBS CARE(HIGH) KODY MARTINEZ MD Jan 04, 2025 11:55
[2025-01-04 14:17] LABS: Opiate Scree,Urine Neg (NEGATIVE)
[2025-01-04 14:18] LABS: Amphetamine Screen, Urine Neg (NEGATIVE); Barbiturate Scree,Urine Neg (NEGATIVE); Benzodiazephine Screen, Urine Neg (NEGATIVE); Cannabinoid Screen, Urine Neg (NEGATIVE); Cocaine Screen, Urine Neg (NEGATIVE); Phencyclidine Screen, Urine Neg (NEGATIVE)
[2025-01-04] MEDS: TEMAZEPAM 15 MG CAP PO PRN (21:26)
[2025-01-05] VITALS (9 sets, daily range): BP systolic 106–121; BP diastolic 66–75; PULSE 58–69; RESP 16–18; TEMP 97.9–98.5; O2SAT 95–99
--- NOTE | 2025-01-05 11:59 | DVHPN2 ---
Subjective The patient is seen and examined at bedside. Complain of shortness for breath. Reviewed: Care Plan, H&P, Labs, Medications, Previous Orders, Radiology Changes from previous H/P or p: No Changes Objective Vitals Vital Signs Date Time Temp Pulse Resp B/P (MAP) Pulse Ox O2 Delivery O2 Flow Rate FiO2 01/05/25 08:48 98 Room Air 01/05/25 08:48 0 21 01/05/25 08:30 98.2 67 18 113/73 (86) 98.2 Intake/Output Intake and Output 01/05/25 07:00 Intake Total 940 ml Output Total 400 ml Balance 540 ml Intake Oral 940 ml Output Urine Total 400 ml # Voids 2 # Bowel Movements 1 General Appearance: Alert, Oriented X3, Cooperative, No acute distress HEENT: Atraumatic, PERRLA, EOMI, Mucous membr. moist/pink Neck: Supple Lungs: Clear to auscultation, Normal air movement Cardiovascular: Regular rate, Normal S1, Normal S2, No murmurs, Gallops, Rubs Abdomen: Normal bowel sounds, Soft, No tenderness Neuro: Cranial nerves 3-12 NL Psych/Mental Status: Mental status NL Medications Current Medications Medications Dose Ordered Sig/Diamante Route Start Time Stop Time Status Last Admin Dose Admin Albuterol 2.5 mg Q6HPRN PRN NEB 01/03/25 19:30 01/04/25 08:54 2.5 MG Ipratropium [place] 0.5 mg Q6HPRN PRN NEB 01/03/25 19:30 01/04/25 08:54 0.5 MG Methylprednisolone Sodium Succinate 40 mg BID IV 01/03/25 22:00 01/05/25 08:15 40 MG Temazepam 15 mg QHSP PRN PO 01/03/25 19:30 01/04/25 21:26 15 MG Ondansetron HCl 4 mg Q4HP PRN IV 01/03/25 19:30 01/05/25 08:14 4 MG Acetaminophen 650 mg Q6HP PRN PO 01/03/25 19:30 Ceftriaxone Sodium 50 ml @ 100 mls/hr DAILY@09 IV 01/05/25 09:00 01/05/25 08:12 100 MLS/HR Loperamide HCl 2 mg Q6HP PRN PO 01/05/25 10:45 UNV Laboratory Results Laboratory Tests 01/03/25 14:14 01/04/25 06:18 Urinalysis Test 01/03/25 16:26 Urine Color Yellow (Yellow) Urine Clarity Clear (Clear) Urine pH 7.0 (5.0-9.0) Urine Specific [place] 1.014 (1.001-1.035) Urine Protein Negative (Negative) Urine Ketones Negative (Negative) Urine Blood Negative /uL (Negative) Urine Nitrite Negative (Negative) Urine Bilirubin Negative (Negative) Urine Urobilinogen Normal mg/dL (Negative) Urine Leukocyte Esterase Negative /uL (Negative) Urine RBC 2 /hpf (0 - 3) Urine Microscopic WBC < 1 /HPF (0-3) Urine Squamous Epithelial Cells None seen /hpf (<5) Urine Bacteria None seen /hpf (None Seen) Urine Yeast (Budding) Occasional /hpf (None Urine Glucose Normal mg/dL (Normal) Labs and/or images reviewed: Labs reviewed by me Assessment/Plan Assessment/Plan Acute on chronic respiratory failure Asthma exacerbation Continuing current management. Continuing with nebulizer. Continuing with Solu-Medrol IV. We will add IV antibiotic Rocephin 1 g IV q.day We will order 2D echo Discharge planning This medical document was created using an electronic medical record system with [employer] direct computerized dictation system. Although this document has been carefully reviewed, there may still be some phonetic and typographical errors. These areas are purely typographical due to imperfections of the software programs, and do not reflect any compromise in the patient's medical care. Plan discussed with: Patient My Orders Orders - KODY MARTINEZ MD Procedure Category Date Status Time Ceftriaxone 1gm/50ml PHA 01/05/25 In Process (Rocephin) 09:00 Loperamide Capsule PHA 01/05/25 Logged (Imodium Capsule) 10:45 Echo 2d Mode Cardiac US 01/05/25 Logged DOP 10:45 Date of Service: Jan 05, 2025 Billing Provider: KODY MARTINEZ MD Common Visit Codes: [id number] INP/OBS CARE(HIGH) KODY MARTINEZ MD Jan 05, 2025 11:59
[2025-01-05] MEDS ORDERED: METH4PAK PO (12:49)
[2025-01-05] MEDS ORDERED: AZIT-74 PO (12:56)
--- NOTE | 2025-01-05 12:58 | DVHDS2 ---
Discharge Summary Date of Admission Jan 03, 2025 at 19:30 Date of Discharge: Jan 05, 2025 Admitting Diagnosis Acute on chronic respiratory failure Asthma exacerbation Labs/Diagnostic Data: Laboratory Results Test 01/04/25 13:23 01/04/25 06:18 01/03/25 22:01 01/03/25 16:26 Urine Opiates Screen Neg (NEGATIVE) Urine Fentanyl Screen Neg (NEGATIVE) Urine Barbiturates Screen Neg (NEGATIVE) Urine Phencyclidine Screen Neg (NEGATIVE) Urine Amphetamines Screen Neg (NEGATIVE) Urine Benzodiazepines Screen Neg (NEGATIVE) Urine Cocaine Screen Neg (NEGATIVE) Urine Cannabinoids Screen Neg (NEGATIVE) Sodium Level 140 mmol/L (136-145) Potassium Level 4.2 mmol/L (3.5-5.1) Chloride Level 106 mmol/L (98-107) Carbon Dioxide Level 23 mmol/L (20-31) Anion Gap 11 (5-15) Blood Urea Nitrogen 12 mg/dL (9-23) Creatinine 0.98 mg/dL (0.700-1.30) Glomerular Filtration Rate Calc 89 mL/min (>90) BUN/Creatinine Ratio 12.2 (10.0-20.0) Serum Glucose 144 mg/dL (74-106) Calcium Level 9.8 mg/dL (8.7-10.4) D-Dimer, Quantitative < 0.19 mg/L FEU (0.0-0.49) Urine Color Yellow (Yellow) Urine Clarity Clear (Clear) Urine pH 7.0 (5.0-9.0) Urine Specific [place] 1.014 (1.001-1.035) Urine Protein Negative (Negative) Urine Ketones Negative (Negative) Urine Blood Negative /uL (Negative) Urine Nitrite Negative (Negative) Urine Bilirubin Negative (Negative) Urine Urobilinogen Normal mg/dL (Negative) Urine Leukocyte Esterase Negative /uL (Negative) Urine RBC 2 /hpf (0 - 3) Urine Microscopic WBC < 1 /HPF (0-3) Urine Squamous Epithelial Cells None seen /hpf (<5) Urine Bacteria None seen /hpf (None Seen) Urine Yeast (Budding) Occasional /hpf (None Urine Glucose Normal mg/dL (Normal) Test 01/03/25 15:00 01/03/25 14:14 Troponin I High Sensitivity < 3 ng/L (</=54) White Blood Count 8.5 10^3/uL (4.4-10.8) Red Blood Count 4.61 10^6/uL (4.5-5.90) Hemoglobin 14.3 g/dL (13.5-17.5) Hematocrit 41.3 % (41.0-53.0) Mean Corpuscular Volume 89.6 fL (80.0-100.0) Mean Corpuscular Hemoglobin 31.0 pg (28.0-32.0) Mean Corpuscular Hemoglobin Concent 34.7 g/dL (32.0-36.0) Red Cell Distribution Width 14.0 % (11.8-14.3) Platelet Count 238 10^3/uL (140-450) Mean Platelet Volume 8.6 fL (6.9-10.8) Neutrophils (%) (Auto) 75.1 % (37.0-80.0) Lymphocytes (%) (Auto) 11.8 % (10.0-50.0) Monocytes (%) (Auto) 8.9 % (0.0-12.0) Eosinophils (%) (Auto) 3.3 % (0.0-7.0) Basophils (%) (Auto) 0.9 % (0.0-2.0) Neutrophils # (Auto) 6.4 10 ^3/uL (1.6-8.6) Lymphocytes # (Auto) 1.0 10 ^3/uL (0.4-5.4) Monocytes # (Auto) 0.8 10 ^3/uL (0-1.3) Eosinophils # (Auto) 0.3 10 ^3/uL (0-0.8) Basophils # (Auto) 0.1 10 ^3/uL (0-0.2) Nucleated Red Blood Cells 0.1 % B-Type Natriuretic Peptide 205.50 pg/mL (0-100) Other Laboratory Tests 01/04/25 06:18 01/03/25 14:14 Brief Hx & Hospital Course: This is a 59 years old male come to emergency department because severe shortness for breath. The patient had one day history of worsening shortness for breath. The patient had history of asthma but did not take any inhaler at home. The patient was admitted for asthma exacerbation. The patient was put on IV antibiotic with Rocephin. The patient was put on arm Solu-Medrol. The patient had nebulizer with Atrovent and albuterol. Subsequently the patient doing well. Less shortness for breath. The patient's echo is normal showed EF of 55%. I am going to discharge the patient home today. Advised the patient to follow up with primary care physician 1-2 weeks. Activity as tolerated. Diet per home diet. Physical exam: HEENT: Normocephalic atraumatic pupils equal react to light and accommodation. Extraocular muscles intact, conjunctiva pink, oropharynx moist, no thrush, no exudate. Lymphatic: No lymphadenopathy Cardiovascular exam: S1, S2 was heard. No murmurs, rubs, gallops Lung: Clear on auscultation bilaterally, no wheeze, rale, rhonchi. GI: Abdominal soft, nondistended, nontenderness, positive bowel sounds. Extremity: No crepitus, cyanosis, edema. Pedal pulses present bilateral. Full range of motion. Skin: Normal turgor, no rash. Psych: Alert, oriented x3. Neurology: No focal deficits, cranial nerve II to XII grossly intact. This medical document was created using an electronic medical record system with [employer] direct computerized dictation system. Although this document has been carefully reviewed, there may still be some phonetic and typographical errors. These areas are purely typographical due to imperfections of the software programs, and do not reflect any compromise in the patient's medical care. Condition at Discharge: Stable Final Diagnosis/Problems List Acute on chronic respiratory failure Asthma exacerbation Discharge Disposition: Home Discharge Instruct/Medications Diet: Cardiac 2g Na,low cholest Activity: No Restrictions, As Tolerated Follow Up/Referral: pcp 1-2 weeks Medications: resume home meds Zpak until finish Medrodose justin until finish Scheduled Allopurinol (Allopurinol), 300 MG PO DAILY, (Reported) Azithromycin (Zithromax), 250 MG PO DAILY Budesonide (Inhalation) (Budesonide), 1 2 INH DAILY, (Reported) Duloxetine Hcl (Cymbalta), 1 CAP PO DAILY Methylprednisolone (Medrol Dosepak), 4 MG PO UD Scheduled PRN Ibuprofen (Ibuprofen), 1 TAB PO TID PRN Discontinued Medications Doxycycline Monohydrate (Doxycycline Monohydrate), 100 MG PO Q12HR Discharge Statement: "Patient was advised to return to the ER or call 911 if any headaches, dizziness, shortness of breath, chest pain, abdominal pain, bleeding, fevers, or worsening of medical condition. Patient was counseled about treatment plan, medications, possible side effects, patientverbalized understanding. All questions were answered to the best of my ability. This discharge took greater then 30 minutes in planning, reviewing documentation, counseling the patient, and discussing with other team members." ASSESSMENT ASSESSMENT Assessment discharge after echo done. Date of Service: Jan 06, 2025 Billing Provider: KODY MARTINEZ MD Common Visit Codes: [id number] DISCH DAY >30min KODY MARTINEZ MD Jan 05, 2025 12:58
[2025-01-05] MEDS: LOPERAMIDE HCL 2 MG CAP/TAB PO PRN (13:29)
[2025-01-06] VITALS (10 sets, daily range): BP systolic 105–118; BP diastolic 72–80; PULSE 49–72; RESP 16–20; TEMP 97.2–98.3; O2SAT 95–100
--- NOTE | 2025-01-07 18:01 | DVHSR ---
APPROVED REPORT EXAM: Two-dimensional and M-mode echocardiogram with Doppler and color Doppler. Blood Pressure: 117/80 mmHg INDICATION Elevated BNP RISK FACTORS Height: 5' 10", Weight: 184 DIMENSIONS LVDd4.9 (3.8-5.7cm)LA (2D)3.7 (1.9-4.0cm)Aortic Root3.9 (2.0-3.7cm) LVDs3.0 (2.5-4.0cm)LA (MM) (1.9-4.0cm)Aortic Cusp Exc2.1 (1.5-2.0cm) EF (%) 55.0 (55-70%)Rt. Atrium3.9 (1.9-4.0cm)Asc. Aorta cm IVSd1.1 (0.7-1.1cm)RV (D) (1.8-2.4cm) PWd0.9 (0.7-1.1cm) Mitral Valve MitralMitral Stenosis E wave0.50m/sMV Mean GR.mmHg A wave0.60m/sMV Peak GR.mmHg E/A ratio0.82D MVAcm2 Aortic Valve Aortic ValveAortic Stenosis V10.80m/Danni Mean GR.3mmHg V21.20m/Danni Peak GR.6mmHg LVOT Diameter2.4 (1.8-2.4cm)Doppler AVA3.01cm2 Pulmonic Valve V20.50m/s Other Information Quality : Rhythm : Bradycardia Conclusion LV EF IS 55% AND IS NORMAL NORMAL VALVES NORMAL RV FUNCTION NO EFFUSION
== END 2025-01-06 16:45 | disposition home or self-care (01) | DRG 133 ==
LOC: EDBD 12:22 → ER 12:22 → OVERFLOW 19:30 → WEST WING 22:15
PROVIDERS: ADMIT Internal Medicine; ATTEND Internal Medicine
DX: J96.20 Acute and chronic respiratory failure, unspecified whether with hypoxia or hypercapnia (principal); J45.901 Unspecified asthma with (acute) exacerbation; F17.210 Nicotine dependence, cigarettes, uncomplicated; Z87.11 Personal history of peptic ulcer disease; Z79.899 Other long term (current) drug therapy
CPT/HCPCS: 36415; 71045; 80048; 80307; 81001; 83880; 84484; 85025; 85379; 93005; 93306; 94640; G0378; J2405

== ENCOUNTER 2025-01-16 09:42 | Emergency (ER) | payer MEDICAID ==
[~2025-01-16] VITALS: Ht 188 cm; Wt 85.0 kg
[~2025-01-16 09:42] MED LIST changes: +AZIT-74 PO; -DOX100T PO; +METH4PAK PO
--- NOTE | 2025-01-16 09:57 | ECG ---
[facility] Test Date: 2025-01-16 Test Time: 09:47:33 Pat Name: DAVID LEYVA Department: [facility] ED Patient ID: [id number] Room: Gender: M Receiving Team Member: HERBERTH : 1965 Requested By: KYUNG DIGGS Order Number: [id number] Reading MD: Gianluca Aragon Measurements Intervals [place] Rate: 62 P: 29 ME: 130 QRS: 61 QRSD: 99 T: 58 QT: 428 QTc: 435 Interpretive Statements Sinus rhythm Electronically Signed On 01-17-2025 16:59:47 PDT by Gianluca Aragon Please click the below link to view image of tracing.
[2025-01-16] MEDS: ATORVASTATIN 20 MG TAB PO ONE (10:15)
--- NOTE | 2025-01-16 10:21 | ED.PDOC ---
HPI Comments 59-year-old male with past medical history of asthma, COPD, and gout came to the hospital due to chest pain since morning. Per patient, today morning upon waking up he got substernal chest pain, nonradiating, unprovoked, 2/10 in intensity, burning in nature, with no clear exacerbating or relieving factor which lasted for 3 minutes. He also reports of shortness of breaths and upon using of inhaler at home, improved. He denies headache, blurry vision, nausea, vomiting, palpitation, cough, or any trauma. Home meds: Albuterol and baclofen and Basile. Previously was taking allopurinol for gout but due to insurance issue has stopped taking Social history: Ex-smoker, drank alcohol (stopped drinking 1 month back), ex heroin user Family history: Nonsignificant Chief Complaint: Chest Pain Time Seen by MD: 09:49 Primary Care Provider: UNKNOWN Reviewed Notes: Nurses Notes Allergies: Coded Allergies: NO KNOWN ALLERGIES (Unverified , 02/19/10) Home Meds Active Scripts Azithromycin (Zithromax) 250 Mg Tab, 250 MG PO DAILY, #6 TAB take 2 tabs the first day, then one tab until finish. Prov:KODY MARTINEZ MD 01/05/25 Methylprednisolone (Medrol Dosepak) 4 Mg Tunde, 4 MG PO UD, #21 TAB UAD Prov:KODY MARTINEZ MD 01/05/25 Duloxetine Hcl (Cymbalta) 60 Mg Cap, 1 CAP PO DAILY for 30 Days, #90 CAP 3 Refi lls Prov:LINDA RAY NP 05/26/23 Ibuprofen (Ibuprofen) 600 Mg Tab, 1 TAB PO TID PRN, #20 TAB Prov:LV MADDOX MD 01/27/20 Reported Medications Budesonide (Inhalation) (Budesonide) 0.25MG/2 Natalie, 1 2 INH DAILY 01/01/16 Allopurinol (Allopurinol) 300 Mg Tab, 300 MG PO DAILY for 30 Days, MG 01/01/16 Mode of Arrival: Ambulatory Past Medical History PAST MEDICAL HISTORY: Asthma Past Medical History (Other): COPD and gout Surgical History: Denies all surgeries Family History Family History: Reviewed,noncontributory to illness Social History Smoker: Cigarettes, Unobtainable Alcohol: Heavy, Unobtainable Drugs: Methamphetamine, Other Lives In: Home Constitutional: denies: chills, diaphoresis, fatigue, fever, malaise, sweats, weakness, others EENTM: denies: blurred vision, double vision, ear bleeding, ear discharge, ear drainage, ear pain, ear ringing, eye pain, eye redness, hearing loss, mouth pain, mouth swelling, nasal discharge, nose bleeding, nose congestion, nose pain, photophobia, tearing, throat pain, throat swelling, voice changes, others Respiratory: denies: cough, hemoptysis, orthopnea, SOB at rest, shortness of breath, SOB with excertion, stridor, wheezing, others Cardiovascular: denies: chest pain, dizzy spells, diaphoresis, Dyspnea on exertion, edema, irregular heart beat, left arm pain, lightheadedness, palpitations, PND, syncope, others Gastrointestinal: denies: abdomen distended, abdominal pain, blood streaked bowels, constipated, diarrhea, dysphagia, difficulty swallowing, hematemesis, melena, nausea, poor appetite, poor fluid intake, rectal bleeding, rectal pain, vomiting, others Genitourinary: denies: burning, dysuria, flank pain, frequency, hematuria, incontinence, penile discharge, penile sore, pain, testicle pain, testicle swelling, urgency, others Neurological: denies: dizziness, fainting, headache, left sided numbness, left sided weakness, numbness, paresthesia, pre-existing deficit, right sided numbness, right sided weakness, seizure, speech problems, tingling, tremors, weakness, others Musculoskeletal: denies: back pain, gout, joint pain, joint swelling, muscle pain, muscle stiffness, neck pain, others Integumetry: denies: bruises, change in color, change in hair/nails, dryness, laceration, lesions, lumps, rash, wounds, others Allergic/Immunocompromised: denies: Difficulty Healing, Frequent Infections, Hives, Itching, others Hematologic/Lymphatic: denies: anemia, blood clots, easy bleeding, easy bruising, swollen glands, others Endocrine: denies: excessive hunger, excessive sweating, excessive thirst, excessive urination, flushing, intolerance to cold, intolerance to heat, unexplained weight gain, unexplained weight loss, others Psychiatric: denies: anxiety, bipolar disorder, depression, hopeless, panic disorder, schizophrenia, sleepless, suicidal, others Physical Exam General Appearance: No Apparent Distress, Normal HEENT: Normal ENT Inspection, Pharynx Normal, TMs Normal Neck: Full Range of Motion, Non-Tender, Normal, Normal Inspection Respiratory: Chest Non-Tender, Lungs Clear, No Accessory Muscle Use, No Respiratory Distress, Normal Breath Sounds Cardiovascular: No Edema, No JVD, No Murmur, No Gallop, Normal Peripheral Pulses, Regular Rate/Rhythm Breast Exam: Deferred Gastrointestinal: No Organomegaly, Non Tender, No Pulsatile Mass, Normal Bowel Sounds, Soft Genitalia: Deferred Pelvic: Deferred Rectal: Deferred Extremities: No calf tenderness, Normal capillary refill, Normal inspection, Normal range of motion, Non-tender, No pedal edema Musculoskeletal : Apperance: Normal Neurologic: Alert, certified ophthalmic surgical assistant II-XII nml as Tested, No Motor Deficits, Normal Affect, Normal Mood, No Sensory Deficits Cerebellar Function: Normal Reflexes: Normal Skin: Dry, Normal Color, Warm Lymphatic: No Adenopathy Was a procedure done? Was a procedure done?: No CP Differential Dx Differential Diagnosis: Other Differential Diagnosis: Angina, Chest Wall Pain, Cholelithiasis, Esophageal reflux/spasm, Gastritis X-Ray, Labs, Meds, VS Vital Signs Date Time Temp Pulse Resp B/P (MAP) Pulse Ox O2 Delivery O2 Flow Rate FiO2 01/16/25 12:41 51 01/16/25 11:21 95 18 117/77 (90) 97 01/16/25 11:21 96 18 97 Room Air 01/16/25 09:47 62 Lab Test 01/16/25 13:10 01/16/25 11:04 01/16/25 11:00 01/16/25 10:18 Range/Units Troponin I High Sensitivity < 3 L < 3 L </=54 ng/L Urine Opiates Screen Neg NEGATIVE Urine Fentanyl Screen Neg NEGATIVE Urine Barbiturates Screen Neg NEGATIVE Urine Phencyclidine Screen Neg NEGATIVE Urine Amphetamines Screen Neg NEGATIVE Urine Benzodiazepines Screen Neg NEGATIVE Urine Cocaine Screen Neg NEGATIVE Urine Cannabinoids Screen Neg NEGATIVE Erythrocyte Sedimentation Rate 10 0-20 mm/hr Test 01/16/25 10:16 Range/Units White Blood Count 9.4 4.4-10.8 10^3/uL Red Blood Count 4.08 L 4.5-5.90 10^6/uL Hemoglobin 12.5 L 13.5-17.5 g/dL Hematocrit 36.6 L 41.0-53.0 % Mean Corpuscular Volume 89.7 80.0-100.0 fL Mean Corpuscular Hemoglobin 30.6 28.0-32.0 pg Mean Corpuscular Hemoglobin Concent 34.0 32.0-36.0 g/dL Red Cell Distribution Width 14.1 11.8-14.3 % Platelet Count 237 140-450 10^3/uL Mean Platelet Volume 8.1 6.9-10.8 fL Neutrophils (%) (Auto) 74.0 37.0-80.0 % Lymphocytes (%) (Auto) 14.0 10.0-50.0 % Monocytes (%) (Auto) 6.9 0.0-12.0 % Eosinophils (%) (Auto) 4.7 0.0-7.0 % Basophils (%) (Auto) 0.4 0.0-2.0 % Neutrophils # (Auto) 6.9 1.6-8.6 10 ^3/uL Lymphocytes # (Auto) 1.3 0.4-5.4 10 ^3/uL Monocytes # (Auto) 0.6 0-1.3 10 ^3/uL Eosinophils # (Auto) 0.4 0-0.8 10 ^3/uL Basophils # (Auto) 0 0-0.2 10 ^3/uL Nucleated Red Blood Cells 0.0 % Sodium Level 141 136-145 mmol/L Potassium Level 3.8 3.5-5.1 mmol/L Chloride Level 106 98-107 mmol/L Carbon Dioxide Level 25 20-31 mmol/L Anion Gap 10 5-15 Blood Urea Nitrogen 16 9-23 mg/dL Creatinine 0.85 0.700-1.30 mg/dL Glomerular Filtration Rate Calc 100 >90 mL/min BUN/Creatinine Ratio 18.8 10.0-20.0 Serum Glucose 95 74-106 mg/dL Uric Acid 7.6 3.7-9.2 mg/dL Calcium Level 8.6 L 8.7-10.4 mg/dL Magnesium Level 1.9 1.6-2.6 mg/dL Total Bilirubin 0.4 0.2-1.0 mg/dL Aspartate Amino Transferase (AST) 14 13-40 U/L Alanine Aminotransferase (ALT) 25 7-40 U/L Alkaline Phosphatase 51 46-116 U/L Troponin I High Sensitivity < 3 L </=54 ng/L C-Reactive Protein High Sensitivity 1.63 H <1.0 mg/dL Total Protein 6.3 5.7-8.2 g/dL Albumin 4.0 3.2-4.8 g/dL Plasma/Serum Blood Alcohol < 3.0 <10 mg/dL Current Medications Medications (Trade) Dose Ordered Sig/Diamante Route Start Time Stop Time Status Last Admin Aspirin 325 mg ONCE ONCE PO 01/16/25 10:15 01/16/25 10:16 DC 01/16/25 10:15 Time of 1ST Reevaluation: 15:30 Reevaluation 1ST: Improved Patient Education/Counseling: Diagnosis, Treatment, Prognosis, Need For Follow Up Family Education/Counseling: No Family Present Comments Patient came to the hospital due to chest pain and bilateral raised pain. Patient was vitally stable. EKGs showed normal sinus rhythm with no significant ST or T-wave changes. Serial trop I is within normal limits. Bilateral wrist joints are swollen and red. CRP is raised Patient was given ibuprofen Patient was discharged home and recommended may use ibuprofen 400 mg 3 times a day for 7 days. Patient was recommended to follow up with the PCP for gout to treatment. SEPSIS Sepsis Screen Date sepsis recognized/suspect: Jan 16, 2025 Time Sepsis recognized/suspect: 950 Recent Procedure: No (N) On Antibiotic Therapy: No Respiratory Rate >20: No Heart Rate >90: No Temp<36 C (96.8 F) or >38.3 C: No SBP <90 or MAP <65 mmHG: No New Acute Mental Status Change: No Is the patient on CPAP, BIPAP,: No Physician Orders Electrocardigram (01/16/25 09:50) Electrocardigram (01/16/25 11:01) Electrocardigram (01/16/25 13:01) Vital Signs Date Time Temp Pulse Resp B/P (MAP) Pulse Ox O2 Delivery O2 Flow Rate FiO2 01/16/25 12:41 51 01/16/25 11:21 95 18 117/77 (90) 97 01/16/25 11:21 96 18 97 Room Air 01/16/25 09:47 62 Laboratory Tests Test 01/16/25 10:16 White Blood Count 9.4 10^3/uL (4.4-10.8) Medications Medications Dose Ordered Sig/Diamante Route Start Time Stop Time Status Last Admin Dose Admin Aspirin 325 mg ONCE ONCE PO 01/16/25 10:15 01/16/25 10:16 DC 01/16/25 10:15 Departure 1 Departure Time of Disposition: 15:31 Impression: Primary Impression: Musculoskeletal pain Additional Impression: Gout flare Disposition: 01 HOME / SELF CARE / HOMELESS Condition: Fair Critical Care Note Critical Care Time?: Yes (45 min-critical care time only) Stability Stability form required: No Heart Score Heart Score: Heart Score Response (Comments) Value History Slightly Suspicious 0 EKG Normal 0 Age 45-64 1 Risk Factors 1 or 2 risk factors 1 Troponin Normal limit 0 Total 2 KYUNG DIGGS Jan 16, 2025 10:21
[2025-01-16 10:51] LABS: Hematocrit 36.6 % (41.0-53.0); Hemoglobin 12.5 g/dL (13.5-17.5); Mean Corpuscular Hemoglobin 30.6 pg (28.0-32.0); Mean Corpuscular Volume 89.7 fL (80.0-100.0); Nucleated Red Blood Cells % 0.0 %
[2025-01-16 11:03] LABS: Alanine Aminotransferase 25 U/L (7-40); Albumin 4.0 g/dL (3.2-4.8); Alkaline Phosphatase 51 U/L (46-116); Anion Gap 10 (5-15); BUN/Creatinine Ratio 18.8 (10.0-20.0); Bilirubin, Total 0.4 mg/dL (0.2-1.0); Blood Urea Nitrogen 16 mg/dL (9-23); Carbon Dioxide 25 mmol/L (20-31); Chloride 106 mmol/L (98-107); Glucose 95 mg/dL (74-106); Magnesium 1.9 mg/dL (1.6-2.6); Potassium 3.8 mmol/L (3.5-5.1); Sodium 141 mmol/L (136-145); Total Protein 6.3 g/dL (5.7-8.2)
[2025-01-16 11:11] LABS: Calcium 8.6 mg/dL (8.7-10.4)
[2025-01-16 11:21] VITALS: BP 117/77; RESP 18; O2SAT 97
[2025-01-16 11:30] LABS: Uric Acid 7.6 mg/dL (3.7-9.2)
[2025-01-16 12:41] VITALS: PULSE 51
[2025-01-16 12:52] LABS: Amphetamine Screen, Urine Neg (NEGATIVE); Barbiturate Scree,Urine Neg (NEGATIVE); Benzodiazephine Screen, Urine Neg (NEGATIVE); Cannabinoid Screen, Urine Neg (NEGATIVE); Cocaine Screen, Urine Neg (NEGATIVE); Opiate Scree,Urine Neg (NEGATIVE); Phencyclidine Screen, Urine Neg (NEGATIVE)
[2025-01-16] MEDS ORDERED: IBUPROFEN 600 MG TAB PO ONE (15:45)
--- NOTE | 2025-01-17 07:38 | ECG ---
[facility] Test Date: 2025-01-16 Test Time: 12:41:54 Pat Name: DAVID LEYVA Department: [facility] ED Patient ID: [id number] Room: Gender: M Marble Mason: : 1965 Requested By: KYUNG DIGGS Order Number: [id number] Reading MD: Gianluca Aragon Measurements Intervals [place] Rate: 51 P: 60 IA: 140 QRS: 68 QRSD: 95 T: 61 QT: 445 QTc: 410 Interpretive Statements Sinus arrhythmia Electronically Signed On 01-17-2025 17:00:11 PDT by Gianluca Aragon Please click the below link to view image of tracing.
--- NOTE | 2025-01-17 12:47 | ECG ---
[facility] Test Date: 2025-01-16 Test Time: 10:39:42 Pat Name: DAVID LEYVA Department: [facility] ED Patient ID: [id number] Room: Gender: M Roller Hand: ashleigh : 1965 Requested By: KYUNG DIGGS Order Number: [id number] Reading MD: Gianluca Aragon Measurements Intervals [place] Rate: 61 P: 58 OR: 140 QRS: 67 QRSD: 96 T: 65 QT: 435 QTc: 439 Interpretive Statements Sinus rhythm Baseline wander in lead(s) V1,V4,V6 Electronically Signed On 01-17-2025 16:59:58 PDT by Gianluca Aragon Please click the below link to view image of tracing.
== END 2025-01-16 15:38 | disposition home or self-care (01) ==
LOC: ER 09:42
DX: R07.89 Other chest pain (principal); M10.9 Gout, unspecified; J44.89 Other specified chronic obstructive pulmonary disease; F17.210 Nicotine dependence, cigarettes, uncomplicated; Z79.899 Other long term (current) drug therapy; Z86.2 Personal history of diseases of the blood and blood-forming organs and certain disorders involving the immune mechanism
CPT/HCPCS: 36415; 80053; 80307; 80320; 83735; 84484; 84550; 85025; 85652; 86141; 93005